=== PATIENT | female | born 1980 | race Hispanic/Latino ===

== ENCOUNTER 2018-07-10 18:24 | Observation (INO) | payer OTHER ==
[2018-07-10 19:11] LABS: Absolute Lymphocytes (CBC) 1.5 K/uL (0.7-4.9); Absolute Monocytes 0.5 K/uL (0.1-1.3); Absolute Neutrophil 3.7 K/uL (1.8-8.0); Basophils % 0.9 % (0-1.3); Eosinophils % 0.7 % (0-4.4); Hematocrit 43.2 % (36.0-45.0); Lymphocytes % 25.4 % (15.3-44.8); MCH 30.2 pg (27.0-35.0); MCV 88.4 fL (80-100); MPV 9.5 fL (7.6-11.3); Monocytes % 8.2 % (3.3-12.3); RBC Red Blood Cell Count 4.89 M/uL (3.86-4.86)
[2018-07-10 19:27] LABS: ALT/SGPT 31 U/L (12-78); AST/SGOT 23 U/L (15-37); Albumin 4.1 g/dL (3.4-5.0); Alkaline Phosphatase 84 U/L (45-117); BUN Blood Urea Nitrogen 9 mg/dL (7-18); Bicarbonate 28 mmol/L (21-32); Bilirubin Direct < 0.1 mg/dL (0-0.2); Bilirubin Total 0.2 mg/dL (0.2-1.0); Glucose Level 112 mg/dL (74-106); NT PRO-BNP 23 pg/mL (<125); Potassium 3.2 mmol/L (3.5-5.1); Protein, Total 7.7 g/dL (6.4-8.2); Sodium Level 143 mmol/L (136-145); Troponin (Emerg Dept Use Only) < 0.02 ng/mL (0.0-0.045)
[2018-07-10 20:13] LABS: Protime INR 0.97
--- NOTE | 2018-07-10 20:26 | RAD REPORT ---
EXAM DESCRIPTION: RAD - Chest Single View - 07/10/2018 7:29 pm CLINICAL HISTORY: Chest pain COMPARISON: None. TECHNIQUE: AP portable chest image was obtained 1913 hours . FINDINGS: Lungs are clear. Heart and vasculature are normal. No measurable pleural effusion and no p neumothorax. No gross bony abnormality seen. No acute aortic findings suspected. IMPRESSION: No acute cardiopulmonary process.
--- NOTE | 2018-07-10 20:51 | ER ---
Nurse's Notes [facility] Name: Carie Garcia Age: 37 yrs Sex: Female : 1980 Arrival Date: 07/10/2018 Time: 18:26 Bed 24 Private MD: Diagnosis: Chest pain, unspecified Presentation: 07/10 18:32 Presenting complaint: Patient states: Chest pain that radiates to left arm with nausea aj and lightheadedness. Transition of care: patient was not received from another setting of care. Onset of symptoms was July 10, 2018. Risk Assessment: Do you want to hurt yourself or someone else? Patient reports no desire to harm self or others. Initial Sepsis Screen: Does the patient meet any 2 criteria? No. Patient's initial sepsis screen is negative. Does the patient have a suspected source of infection? No. Patient's initial sepsis screen is negative. Care prior to arrival: None. 18:32 Method Of Arrival: Ambulatory aj 18:32 Acuity: CHRISTIANO 3 aj Triage Assessment: 18:34 General: Appears in no apparent distress. comfortable, Behavior is calm, cooperative, aj appropriate for age. Pain: Complains of pain in chest and left arm. Neuro: Level of Consciousness is awake, alert, obeys commands, Oriented to person, place, time, situation, Appropriate for age. Cardiovascular: Reports chest pain, lightheadedness, nausea, shortness of breath, Capillary refill < 3 seconds in bilateral fingers Patient's skin is warm and dry. Respiratory: Airway is patent Respiratory effort is even, unlabored, Respiratory pattern is regular, symmetrical. GI: Reports nausea. Derm: Skin is intact, is healthy with good turgor, Skin is pink, warm \T\ dry. normal. 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 - Social history:: Smoking status: Patient/guardian denies using tobacco. - Ebola Screening: : Patient negative for fever greater than or equal to 101.5 degrees Fahrenheit, and additional compatible Ebola Virus Disease symptoms Patient denies exposure to infectious person Patient denies travel to an Ebola-affected area in the 21 days before illness onset No symptoms or risks identified at this time. Screenin:50 Abuse screen: Denies threats or abuse. Nutritional screening: No deficits noted. tl3 Tuberculosis screening: No symptoms or risk factors identified. Fall Risk None identified. Assessment: 18:50 General: Appears uncomfortable, slender, well groomed, well developed, well nourished, tl3 Behavior is cooperative, appropriate for age, anxious. Pain: Complains of pain in chest Pain radiates to left arm Pain began suddenly. Neuro: Level of Consciousness is awake, alert, obeys commands, Oriented to person, place, time, situation, Appropriate for age. Cardiovascular: Patient's skin is warm and dry. Rhythm is regular. Respiratory: Airway is patent Respiratory effort is even, unlabored, Respiratory pattern is regular, symmetrical, Breath sounds are clear bilaterally. GI: No signs and/or symptoms were reported involving the gastrointestinal system. : 20:15 Reassessment: Patient appears in no apparent distress at this time. No changes from tl3 previously documented assessment. Patient and/or family updated on plan of care and expected duration. Pain level reassessed. Patient is alert, oriented x 3, equal unlabored respirations, skin warm/dry/pink. discussed POC and lab results with pt, no needs at this time. 20:58 Reassessment: Patient appears in no apparent distress at this time. No changes from tl3 previously documented assessment. Patient and/or family updated on plan of care and expected duration. Pain level reassessed. Patient is alert, oriented x 3, equal unlabored respirations, skin warm/dry/pink. pt updated on latest lab results, no needs at this time. Vital Signs: 18:34 BP 141 / 74; Pulse 83; Resp 17; Temp 98.0; Pulse Ox 100% on R/A; Weight 58.97 kg; aj Height 5 ft. 1 in. (154.94 cm); 18:50 BP 115 / 78; Pulse 81; Resp 18; Pulse Ox 100% on R/A; tl3 18:55 BP 129 / 80; Pulse 84; Resp 17; Pulse Ox 98% on R/A; mh5 20:15 BP 112 / 77; Pulse 76; Resp 16; Pulse Ox 99% on R/A; tl3 20:58 BP 110 / 70; Pulse 78; Resp 18; Pulse Ox 100% on R/A; tl3 18:34 Body Mass Index 24.56 (58.97 kg, 154.94 cm) ED Course: 18:26 Patient arrived in ED. mr 18:33 Triage completed. 18:34 Arm band placed on right wrist. Patient placed in an exam room. 18:37 Julian Patrick PA is PHCP. [facility] 18:37 Donnell Tomlinson MD is Attending Physician. [facility] 18:43 Kati Garcia, LIZ is Primary Nurse. tl3 18:50 No provider procedures requiring assistance completed. Initial lab(s) drawn, by nv, tl3 sent to lab. Inserted saline lock: 20 gauge in right antecubital area, using aseptic technique. Blood collected. Patient maintains SpO2 saturation greater than 95% on room air. 18:54 Patient has correct armband on for positive identification. Placed in gown. Bed in low mh5 position. Call light in reach. Side rails up X 1. Adult w/ patient. Warm blanket given. laboratory monitor on. Pulse ox on. NIBP on. 18:54 EKG done, by ED staff, reviewed by Julian MARTIN. [facility] 19:14 X-ray(s) taken. tl3 19:16 XRAY Chest (1 view) Sent. tl3 19:29 X-ray completed. Portable x-ray completed in exam room. Patient tolerated procedure kw well. 19:30 XRAY Chest (1 view) In Process Unspecified. EDMS 20:50 Mamie Moore MD is Hospitalizing Provider. [facility] 21:51 Patient admitted, IV remains in place. tl3 Administered Medications: 19:02 Drug: Aspirin Chewable Tablet 324 mg Route: PO; mg2 19:15 Follow up: Response: No adverse reaction tl3 Outcome: 20:50 Decision to Hospitalize by Provider. [facility] 21:50 Admitted to Med/surg accompanied by tech, via wheelchair, with chart, Report called to tl3 LIZ Shah 21:50 Condition: stable 21:50 Instructed on the need for admit, Demonstrated understanding of instructions. 22:32 Patient left the ED. tl3 Signatures: Dispatcher [employer] EDMS Carol Ann Coon, RN RN Julian Fierro PA PA jmm Rivera, Lizzie mr Gavi, Megan Arana 5 Kati Garcia, RN RN tl3 Dalton Corrales, LIZ RN mg2
--- NOTE | 2018-07-10 20:51 | EDPHYS ---
Physician Documentation [facility] Name: Carie Garcia Age: 37 yrs Sex: Female : 1980 Arrival Date: 07/10/2018 Time: 18:26 Bed 24 Private MD: ED Physician Donnell Tomlinson HPI: 07/10 18:45 This 37 yrs old Female presents to ER via Ambulatory with complaints of Chest jmm Pain, Arm Pain. 18:45 The patient or guardian reports chest pain that is located primarily in the substernal jmm area. The pain radiates to the left arm. Associated signs and symptoms: Pertinent positives: dizziness, Pertinent negatives: abdominal pain. The chest pain is described as a pressure. Duration: The patient or guardian reports a single episode, that is still ongoing. Modifying factors: The symptoms are alleviated by nothing. the symptoms are aggravated by nothing. This is a 37 year old female with a history of unspecified arrhythmias and heart murmur that presents to the ED with chest pain beginning this morning at 0900 described chest pressure which radiates to the left arm. Patient states symptoms are non exertional. Patient states family hx of CAD, denies tobacco use. . 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 - Social history:: Smoking status: Patient/guardian denies using tobacco. - Ebola Screening: : Patient negative for fever greater than or equal to 101.5 degrees Fahrenheit, and additional compatible Ebola Virus Disease symptoms Patient denies exposure to infectious person Patient denies travel to an Ebola-affected area in the 21 days before illness onset No symptoms or risks identified at this time. ROS: 18:45 Eyes: Negative for injury, pain, redness, and discharge, ENT: Negative for injury, jmm pain, and discharge. 18:45 Respiratory: Negative for shortness of breath, cough, wheezing, and pleuritic chest pain, Abdomen/GI: Negative for abdominal pain, nausea, vomiting, diarrhea, and constipation, Back: Negative for injury and pain. 18:45 Constitutional: Positive for malaise. 18:45 Cardiovascular: Positive for chest pain. 18:45 Neuro: Positive for dizziness. 18:45 All other systems are negative. Exam: 18:45 Head/Face: atraumatic. [facility] 18:45 Cardiovascular: Regular rate and rhythm. No edema appreciated Respiratory: Normal respirations, no respiratory distress appreciated 18:45 Constitutional: The patient appears in no acute distress, alert, awake. 18:45 Chest/axilla: Inspection: normal, Palpation: is normal. 18:45 Cardiovascular: Rate: normal, Rhythm: regular, Pulses: no pulse deficits are appreciated. 18:45 Skin: Appearance: Color: normal in color. 18:45 Neuro: Orientation: is normal, Mentation: is normal, Memory: is normal. 18:45 Psych: Behavior/mood is pleasant, cooperative. Vital Signs: 18:34 BP 141 / 74; Pulse 83; Resp 17; Temp 98.0; Pulse Ox 100% on R/A; Weight 58.97 kg; aj Height 5 ft. 1 in. (154.94 cm); 18:50 BP 115 / 78; Pulse 81; Resp 18; Pulse Ox 100% on R/A; tl3 18:55 BP 129 / 80; Pulse 84; Resp 17; Pulse Ox 98% on R/A; mh5 20:15 BP 112 / 77; Pulse 76; Resp 16; Pulse Ox 99% on R/A; tl3 20:58 BP 110 / 70; Pulse 78; Resp 18; Pulse Ox 100% on R/A; tl3 18:34 Body Mass Index 24.56 (58.97 kg, 154.94 cm) MDM: 18:45 Patient medically screened. [facility] 20:45 Data reviewed: vital signs, nurses notes. Counseling: I had a detailed discussion with sean the patient and/or guardian regarding: the historical points, exam findings, and any diagnostic results supporting the discharge/admit diagnosis, lab results, radiology results, the need for further work-up and treatment in the hospital. ED course: Dr. Moore contacted regarding need for admisssion. 07/10 18:45 Order name: Basic Metabolic Panel; Complete Time: 19:46 [facility] 07/10 18:45 Order name: CBC with Diff; Complete Time: 20:10 [facility] 07/10 18:45 Order name: LFT's; Complete Time: 19:46 [facility] 07/10 18:45 Order name: Magnesium; Complete Time: 19:46 [facility] 07/10 18:45 Order name: NT PRO-BNP; Complete Time: 19:46 [facility] 07/10 18:45 Order name: PT-INR; Complete Time: 20:25 [facility] 07/10 18:45 Order name: Troponin (emerg Dept Use Only); Complete Time: 19:46 [facility] 07/10 18:45 Order name: XRAY Chest (1 view); Complete Time: 20:28 [facility] 07/10 18:45 Order name: EKG; Complete Time: 18:46 [facility] 07/10 18:45 Order name: Cardiac monitoring; Complete Time: 19:03 [facility] 07/10 18:45 Order name: D-Dimer; Complete Time: 20:25 [facility] 07/10 20:12 Order name: Urine Dipstick--Ancillary (enter results); Complete Time: 21:32 ms 07/10 20:12 Order name: Urine --Ancillary (enter results); Complete Time: 21:32 ms 07/10 18:45 Order name: EKG - Nurse/Tech; Complete Time: 19:03 [facility] 07/10 18:45 Order name: IV Saline Lock; Complete Time: 19:03 [facility] 07/10 18:45 Order name: Labs collected and sent; Complete Time: 19: [facility] 07/10 18:45 Order name: O2 Per Protocol; Complete Time: 19:03 [facility] 07/10 18:45 Order name: O2 Sat Monitoring; Complete Time: 19:16 jm Administered Medications: 19:02 Drug: Aspirin Chewable Tablet 324 mg Route: PO; mg2 19:15 Follow up: Response: No adverse reaction tl3 Disposition: 07/11 18:24 Co-signature as Attending Physician, Donnell Tomlinson MD. Disposition: 07/10/18 20:50 Hospitalization ordered by Mamie Moore for Observation. Preliminary diagnosis is Chest pain, unspecified. - Bed requested for Telemetry/MedSurg (observation). - Status is Observation. tl3 - Condition is Stable. - Problem is new. - Symptoms are unchanged. UTI on Admission? No Signatures: Dispatcher [facility] Kylie Guthrie RN RN Carol Ann Grove RN RN Julian Fierro PA PA jmm Viridiana Oneill, RN LIZ bb Otto Lawrence PA PA cp Donnell Tomlinson MD MD gs Lowrey, Tammy, RN RN tl3 Dalton Corrales, RN RN mg2 Corrections: (The following items were deleted from the chart) 07/10 20:57 20:50 Hospitalization Ordered by Mamie Moore MD for Observation. Preliminary cp diagnosis is Chest pain, unspecified. Bed requested for Telemetry/MedSurg (observation). Status is Observation. Condition is Stable. Problem is new. Symptoms are unchanged. UTI on Admission? No. jmm 21:03 20:57 07/10/2018 20:50 Hospitalization Ordered by Mamie Moore MD for Observation. bb Preliminary diagnosis is Chest pain, unspecified. Bed requested for Telemetry/MedSurg (observation). Status is Observation. Condition is Stable. Problem is new. Symptoms are unchanged. UTI on Admission? No. cp 21:22 21:03 07/10/2018 20:50 Hospitalization Ordered by Mamie Moore MD for Observation. mw Preliminary diagnosis is Chest pain, unspecified. Bed requested for [facility] ER HOLD. Status is Observation. Condition is Stable. Problem is new. Symptoms are unchanged. UTI on Admission? No. bb 22:32 21:22 07/10/2018 20:50 Hospitalization Ordered by Mamie Moore MD for Observation. tl3 Preliminary diagnosis is Chest pain, unspecified. Bed requested for Telemetry/MedSurg (observation). Status is Observation. Condition is Stable. Problem is new. Symptoms are unchanged. UTI on Admission? No. mw
[2018-07-10 21:18] LABS: Urine Blood NEGATIVE (NEG); Urine Glucose NEGATIVE (NEG); Urine Protein NEGATIVE (NEG); Urine Specific Gravity 1.015 (1.005-1.030)
[2018-07-10] MEDS ORDERED: MORPHINE 4 MG/ML SYR IV PRN (22:05)
[2018-07-10] MEDS: ACETAMINOPHEN 500 MG TAB PO PRN (22:47)
[2018-07-10] MEDS: ALPRAZOLAM 0.25 MG TABLET PO PRN (22:48)
[2018-07-11 00:31] VITALS: BMI 24.7
[2018-07-11 06:06] LABS: Absolute Lymphocytes (CBC) 1.6 K/uL (0.7-4.9); Absolute Monocytes 0.6 K/uL (0.1-1.3); Absolute Neutrophil 2.7 K/uL (1.8-8.0); Basophils % 0.8 % (0-1.3); Eosinophils % 2.4 % (0-4.4); Hematocrit 41.3 % (36.0-45.0); Lymphocytes % 30.9 % (15.3-44.8); MCH 30.3 pg (27.0-35.0); MCV 89.1 fL (80-100); MPV 9.3 fL (7.6-11.3); Monocytes % 12.1 % (3.3-12.3); RBC Red Blood Cell Count 4.63 M/uL (3.86-4.86)
[2018-07-11] MEDS: ACETAMINOPHEN 500 MG TAB PO PRN (06:10)
[2018-07-11 06:35] LABS: Potassium 3.8 mmol/L (3.5-5.1)
[2018-07-11 06:40] LABS: HDL Cholesterol 51 mg/dL (40-60); LDL Cholesterol, Calculated 108 (<130); Troponin I < 0.02 ng/mL (0.0-0.045)
--- NOTE | 2018-07-11 06:44 | EKG ---
Test Date: 2018-07-10 Test Time: 18:50:56 Track Hoe Operator: THANH MEASUREMENT RESULTS: Intervals: Rate: 80 LA: 144 QRSD: 86 QT: 378 QTc: 435 [place]: P: 51 LA: 144 QRS: 44 T: 47 INTERPRETIVE STATEMENTS: Normal sinus rhythm normal ECG No previous ECG available for comparison Electronically Signed On 07-11-18 06:43:25 CDT by Felton Snyder
[2018-07-11 07:17] LABS: Urine Appearance CLEAR; Urine Bilirubin NEGATIVE (NEG); Urine Blood NEGATIVE (NEG); Urine Color YELLOW; Urine Glucose NEGATIVE (NEG); Urine Protein NEGATIVE (NEG); Urine Specific Gravity 1.015 (1.005-1.030); Urine Urobilinogen 0.2 mg/dL (0.2-1.0); Urine pH 6.5 (5.0-7.0)
[2018-07-11 07:23] LABS: Urine Microscopic Reflex NO UMIC
[2018-07-11] MEDS ORDERED: INFLUENZA VACCINE (for 3y+) 0.5 ML DOSE IMVAC ONE (08:00)
[2018-07-11] MEDS ORDERED: ASPIRIN EC 81 MG TAB PO SCH (09:00)
[2018-07-11] MEDS ORDERED: METOPROLOL TAR 50 MG TAB PO SCH (09:00)
[2018-07-11] MEDS ORDERED: NEBIVOLOL HCL 5 MG TAB PO SCH (09:00)
[2018-07-11] MEDS: ALPRAZOLAM 0.25 MG TABLET PO PRN (09:03)
--- NOTE | 2018-07-11 09:13 | P.HP ---
Certification for Inpatient Patient admitted to: Observation With expected LOS: <2 Midnights Patient will require the following post-hospital care: None Practitioner: I am a practitioner with admitting privileges, knowledge of patient current condition, hospital course, and medical plan of care. Services: Services provided to patient in accordance with Admission requirements found in Title 42 Section 412.3 of the Code of Federal Regulations Patient History Date of Service: 07/10/18 Reason for admission: Chest pain rule out acute coronary syndrome History of Present Illness: Patient is a 29-year-old female came to the hospital with chest discomfort. Pain was mainly in the sternal region. Patient's pain worsened so she came into the emergency room. Patient recently had a workup in April including EKG, stress test, and echocardiogram. She states that her workup was unremarkable. She had a Holter monitor placed which showed she had an arrhythmia. She was started on Bystolic. Since then she has been doing well up until yesterday when she had the chest discomfort. After the anxiolytics she felt much better. She was admitted to the hospital to be ruled out for an acute coronary syndrome. Allergies hydrocodone Allergy (Verified 07/10/18 22:56) Nausea/Vomiting Home Medications: Nebivolol HCl [Bystolic*] 1 tab PO DAILY 07/10/18 - Past Medical/Surgical History Has patient received pneumonia vaccine in the past: No Diabetic: No -: heart murmur -: arrythmia -: gallbladder removal -: partial hysterectomy -: tubal ligation - Family History Father Medical History: Hypertension, Cancer Notes: colon cancer Mother Medical History: Other (see notes) Notes: hypothyroidism - Social History Smoking Status: Never smoker Alcohol use: No CD- Drugs: No Caffeine use: Yes Place of Residence: Home Review of Systems 10-point ROS is otherwise unremarkable Physical Examination - Vital Signs Temperature: 97.3 F Blood Pressure: 99/58 Pulse: 65 Respirations: 18 Pulse Ox (%): 98 - Physical Exam General: Alert, In no apparent distress, Oriented x3 HEENT: Atraumatic, PERRLA, Mucous membr. moist/pink, EOMI, Sclerae nonicteric Neck: Supple, 2+ carotid pulse no bruit, No LAD, Without JVD or thyroid abnormality Respiratory: Clear to auscultation bilaterally, Normal air movement Cardiovascular: Regular rate/rhythm, Normal S1 S2, No murmurs Gastrointestinal: Normal bowel sounds, Soft and benign, Non-distended, No tenderness Musculoskeletal: No clubbing, No swelling, No tenderness Integumentary: No rashes Neurological: Normal gait, Normal speech, Normal strength at 5/5 x4 extr, Normal tone, Sensation intact, Cranial nerves 3-12 intact, Normal affect Lymphatics: No axilla or inguinal lymphadenopathy - Studies Laboratory Data (last 24 hrs) 07/10/18 18:55: PT 11.4, INR 0.97 07/10/18 18:55: WBC 5.8, Hgb 14.8, Hct 43.2, Plt Count 237 07/10/18 18:55: Sodium 143, Potassium 3.2 L, BUN 9, Creatinine 0.90, Glucose 112 H, Magnesium 2.0, Total Bilirubin 0.2, AST 23, ALT 31, Alkaline Phosphatase 84 Assessment & Plan - Problems (Diagnosis) (1) Chest pain, rule out acute myocardial infarction Current Visit: Yes Status: Acute (2) Arrhythmia Current Visit: Yes Status: Acute (3) Anxiety disorder Current Visit: Yes Status: Acute - Plan 1. Serial troponins and EKG 2. Cardiology consultation 3. Anxiety medications 4. Anti-platelet therapy, anti coagulation, beta-femi, statin, and O2 as needed 5. GI and DVT prophylaxis Discharge Plan: Home Plan to discharge in: 24 Hours - Advance Directives Does patient have a Living Will: No Does patient have a Durable POA for Healthcare: No - Code Status/Comfort Care Code Status Assessed: Yes Code Status: Full Code Critical Care: No Time Spent Managing PTS Care (In Minutes): 50
--- NOTE | 2018-07-11 09:17 | P.DS ---
Discharge Date: 07/11/18 Disposition: ROUTINE DISCHARGE Discharge Condition: GOOD Reason for Admission: Chest pain rule out acute coronary syndrome - Problems (1) Chest pain, rule out acute myocardial infarction Current Visit: Yes Status: Acute (2) Arrhythmia Current Visit: Yes Status: Acute (3) Anxiety disorder Current Visit: Yes Status: Acute Brief History of Present Illness: Patient is a 29-year-old female came to the hospital with chest discomfort. Pain was mainly in the sternal region. Patient's pain worsened so she came into the emergency room. Patient recently had a workup in April including EKG, stress test, and echocardiogram. She states that her workup was unremarkable. She had a Holter monitor placed which showed she had an arrhythmia. She was started on Bystolic. Since then she has been doing well up until yesterday when she had the chest discomfort. After the anxiolytics she felt much better. She was admitted to the hospital to be ruled out for an acute coronary syndrome. Hospital Course: Patient did much better after giving the anxiolytics. She is clinically doing much better and she is stable for discharge home with outpatient follow-up with her primary care provider. She apparently has had echocardiogram, stress test as an outpatient. She will need to follow with her food critic in 1-2 weeks. Vital Signs/Physical Exam: Temp Pulse Resp BP Pulse Ox 97.3 F 65 18 99/58 L 98 07/11/18 09:12 07/11/18 09:12 07/11/18 09:12 07/11/18 09:12 07/11/18 09:12 General: Alert, In no apparent distress, Oriented x3 Laboratory Data at Discharge: WBC 5.1 K/uL (4.3-10.9) 07/11/18 05:42 Hgb 14.0 g/dL (12.0-15.0) 07/11/18 05:42 Hct 41.3 % (36.0-45.0) 07/11/18 05:42 Plt Count 198 K/uL (152-406) 07/11/18 05:42 PT 11.4 SECONDS (9.5-12.5) 07/10/18 18:55 INR 0.97 07/10/18 18:55 Sodium 142 mmol/L (136-145) 07/11/18 05:42 Potassium 3.8 mmol/L (3.5-5.1) 07/11/18 05:42 BUN 8 mg/dL (7-18) 07/11/18 05:42 Creatinine 0.80 mg/dL (0.55-1.3) 07/11/18 05:42 Glucose 91 mg/dL (74-106) 07/11/18 05:42 Magnesium 2.0 mg/dL (1.8-2.4) 07/10/18 18:55 Total Bilirubin 0.2 mg/dL (0.2-1.0) 07/10/18 18:55 AST 23 U/L (15-37) 07/10/18 18:55 ALT 31 U/L (12-78) 07/10/18 18:55 Alkaline Phosphatase 84 U/L (45-117) 07/10/18 18:55 Troponin I < 0.02 ng/mL (0.0-0.045) 07/11/18 05:42 Triglycerides 150 mg/dL (<150) 07/11/18 05:42 Cholesterol 189 mg/dL (<200) 07/11/18 05:42 HDL Cholesterol 51 mg/dL (40-60) 07/11/18 05:42 Cholesterol/HDL Ratio 3.71 07/11/18 05:42 Home Medications: Nebivolol HCl [Bystolic*] 1 tab PO DAILY 07/10/18 ALPRAZolam [Xanax] 0.25 mg PO TID PRN #15 tab 07/11/18 New Medications: ALPRAZolam [Xanax] 0.25 mg PO TID PRN #15 tab PRN Reason: Anxiety Patient Discharge Instructions: OK TO DC IV AND DC HOME. FOLLOW-UP WITH PRIMARY CARE PROVIDER IN 1-2 WEEKS. FOLLOW-UP WITH CARDIOLOGY IN 1-2 WEEKS. RETURN TO THE ER IF symptoms worsen. CALL or TEXT DR. AGUILA AT [phone] IF ANY QUESTIONS REGARDING HOSPITAL STAY. PLEASE CALL THE FLOOR AT [phone] IF ANY MEDICATION OR NURSING QUESTIONS. Diet: low fat Activity: Fall precautions Time spent managing pt's care (in minutes): 20
[2018-07-11 11:26] VITALS: O2SAT 99
[2018-07-11 17:50] VITALS: BP 93/55; TEMP 98.8
== END 2018-07-11 12:33 | disposition home or self-care (01) ==
LOC: ER 18:24 → ERHOLD 21:07 → 2ND 22:11
PROVIDERS: ADMIT Hospitalist; ATTEND Hospitalist
DX: R07.9 Chest pain, unspecified (principal); I49.9 Cardiac arrhythmia, unspecified; F41.9 Anxiety disorder, unspecified; Z23 Encounter for immunization
CPT/HCPCS: 36415; 71045; 80048; 80061; 80076; 81003; 81025; 83735; 83880; 84484; 85025; 85379; 85610; 93005; 99285; G0008; G0378; Q2035

== ENCOUNTER 2020-04-11 22:15 | Emergency (ER) | payer OTHER ==
--- OUTSIDE RECORDS SUMMARY | 2020-04-11 22:18 | XMS REPORT | Continuity of Care Document ---
:1980 Author Organization [facility] t Address [address] [place] [address] Dr. Jim[address]. [address] [place] [address] Care Team Providers Name Role Phone Oneil Miller Attending Clinician Problems This patient has no known problems. Allergies, Adverse Reactions, Alerts This patient has no known allergies or adverse reactions. Medications This patient has no known medications. Procedures This patient has no known procedures. Encounters Start End Encounter Admission Attending Care Care Encounter Source Date/Time Date/Time Type Type Clinicians Facility Department ID 2019-05-22 2019-05-22 Emergency STEVE Acosta [id number] 17:32:02 23:05:00 [place] [id number] [place] [id number] [place] [id number] Results This patient has no known results.
[2020-04-11] MEDS ORDERED: NA CHLORIDE 0.9% 1,000 ML ONE (23:02)
[2020-04-11] MEDS ORDERED: MORPHINE 4 MG/ML SYR ONE (23:02)
[2020-04-11] MEDS ORDERED: ONDANSETRON 4 MG/2 ML VIAL ONE (23:02)
[2020-04-11 23:08] LABS: Basophils % 0.6 % (0-1.3); Hematocrit 41.7 % (36.0-45.0); Lymphocytes % 17.7 % (15.3-44.8); MPV 9.8 fL (7.6-11.3); RBC Red Blood Cell Count 4.55 M/uL (3.86-4.86)
[2020-04-11 23:17] LABS: ALT/SGPT 21 U/L (12-78); AST/SGOT 14 U/L (15-37); Alkaline Phosphatase 64 U/L (45-117); BUN Blood Urea Nitrogen 17 mg/dL (7-18); Bicarbonate 25 mmol/L (21-32); Bilirubin Direct < 0.1 mg/dL (0-0.2); Bilirubin Total 0.3 mg/dL (0.2-1.0); Glucose Level 92 mg/dL (74-106); Lipase 95 U/L (73-393); Potassium 3.4 mmol/L (3.5-5.1); Protein, Total 7.3 g/dL (6.4-8.2); Sodium Level 142 mmol/L (136-145)
--- NOTE | 2020-04-12 00:59 | ER ---
Nurse's Notes [facility] Name: Carie Martins Age: 39 yrs Sex: Female : 1980 Arrival Date: 04/11/2020 Time: 22:18 Bed 18 [facility] MD: Diagnosis: Upper abdominal pain, unspecified Presentation: 04/11 22:39 Chief complaint: Patient states: "I am having left upper side pain for 1 and a half jd3 hours before coming to the ER.". Coronavirus screen: Proceed with normal triage. Ebola Screen: Patient negative for fever greater than or equal to 101.5 degrees Fahrenheit, and additional compatible Ebola Virus Disease symptoms. Initial Sepsis Screen: Does the patient meet any 2 criteria? No. Patient's initial sepsis screen is negative. Does the patient have a suspected source of infection? No. Patient's initial sepsis screen is negative. Risk Assessment: Do you want to hurt yourself or someone else? Patient reports no desire to harm self or others. Onset of symptoms was April 11, 2020. 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 - Social history:: Smoking status: Patient denies any tobacco usage or history of. Screenin:01 Abuse screen: Denies threats or abuse. Nutritional screening: No deficits noted. jd3 Tuberculosis screening: No symptoms or risk factors identified. Fall Risk Ambulatory Aid- None/Bed Rest/Nurse Assist (0 pts). Gait- Normal/Bed Rest/Wheelchair (0 pts) Mental Status- Oriented to own ability (0 pts). Total Harvey Fall Scale indicates No Risk (0-24 pts). Assessment: 22:59 General: Appears in no apparent distress. uncomfortable, Behavior is calm, cooperative, jd3 appropriate for age. Pain: Complains of pain in left lower quadrant Quality of pain is described as aching. Neuro: Level of Consciousness is awake, alert, obeys commands, Oriented to person, place, time, situation. Cardiovascular: Denies chest pain, Capillary refill < 3 seconds Patient's skin is warm and dry. Respiratory: Airway is patent Respiratory effort is even, unlabored, Respiratory pattern is regular, symmetrical, Denies cough, shortness of breath. GI: Abdomen is flat, non-distended, Abd is soft X 4 quads Abdomen is tender to palpation in left lower quadrant Reports lower abdominal pain. : No signs and/or symptoms were reported regarding the genitourinary system. EENT: No signs and/or symptoms were reported regarding the EENT system. Derm: Skin is intact, Skin is dry, Skin is normal, Skin temperature is warm. Musculoskeletal: Circulation, motion, and sensation intact. Range of motion: intact in all extremities. 23:25 Reassessment: Patient appears in no apparent distress at this time. Patient and/or jd3 family updated on plan of care and expected duration. Pain level reassessed. Patient is alert, oriented x 3, equal unlabored respirations, skin warm/dry/pink. Patient states feeling better. 04/12 00:41 Reassessment: Patient appears in no apparent distress at this time. Patient and/or jd3 family updated on plan of care and expected duration. Pain level reassessed. Patient is alert, oriented x 3, equal unlabored respirations, skin warm/dry/pink. Patient denies pain at this time. Patient states feeling better. 01:07 Reassessment: Patient appears in no apparent distress at this time. Patient and/or jd3 family updated on plan of care and expected duration. Pain level reassessed. Patient is alert, oriented x 3, equal unlabored respirations, skin warm/dry/pink. pt reported understanding of discharge instructions, even and steady gait upon discharge. Patient denies pain at this time. Patient states feeling better. Vital Signs: 04/11 22:41 BP 165 / 104; Pulse 89; Resp 20 S; Temp 98.5(O); Pulse Ox 100% on R/A; Weight 58.97 kg jd3 (R); Height 5 ft. 1 in. (154.94 cm) (R); Pain 10/10; 04/12 00:41 BP 127 / 74; Pulse 76; Resp 16 S; Pulse Ox 100% on R/A; Pain 0/10; jd3 07/01 22:41 Body Mass Index 24.56 (58.97 kg, 154.94 cm) jd3 ED Course: 04/11 22:18 Patient arrived in ED. bp1 22:36 Malissa Shannon [facility]-C [facility] kb 22:36 Otto Campuzano MD is Attending Physician. kb 22:38 Anthony Galaviz, LIZ is Primary Nurse. jd3 22:40 Triage completed. jd3 22:42 Arm band placed on. jd3 22:58 Inserted saline lock: 20 gauge in right antecubital area, using aseptic technique. jd3 Blood collected. 23:01 Patient has correct armband on for positive identification. Bed in low position. Call jd3 light in reach. Side rails up X 1. Adult w/ patient. Pulse ox on. NIBP on. 04/12 00:41 CT Abd/Pelvis - IV Contrast Only In Process Unspecified. EDMS 01:07 No provider procedures requiring assistance completed. IV discontinued, intact, jd3 bleeding controlled, No redness/swelling at site. Pressure dressing applied. Administered Medications: 04/11 22:57 Drug: NS 0.9% 1000 ml Route: IV; Rate: 1000 ml; Site: right antecubital; jd3 23:50 Follow up: Response: No adverse reaction; IV Status: Completed infusion; IV Intake: jd3 1000ml 22:57 Drug: Zofran (Ondansetron) 4 mg Route: IVP; Site: right antecubital; jd3 23:24 Follow up: Response: No adverse reaction jd3 22:58 Drug: morphine 4 mg Route: IVP; Site: right antecubital; jd3 23:24 Follow up: Response: No adverse reaction; RASS: Alert and Calm (0) jd3 Intake: 23:50 IV: 1000ml; Total: 1000ml. jd3 Outcome: 04/12 00:59 Discharge ordered by . kb 01:08 Discharged to home ambulatory, with family. jd3 01:08 Condition: stable 01:08 Discharge instructions given to patient, Instructed on discharge instructions, follow up and referral plans. medication usage, Demonstrated understanding of instructions, follow-up care, medications, Prescriptions given X 2. 01:08 Patient left the ED. jd3 Signatures: Dispatcher [employer] EDMS Malissa Shannon FNP-C FNP-CkAnthony Stewart, RN RN jd3 Elvira Castillo Corrections: (The following items were deleted from the chart) : 01:07 Reassessment: Patient appears in no apparent distress at this time. Patient jd3 and/or family updated on plan of care and expected duration. Pain level reassessed. Patient is alert, oriented x 3, equal unlabored respirations, skin warm/dry/pink. Patient denies pain at this time. Patient states feeling better. jd3
--- NOTE | 2020-04-12 00:59 | EDPHYS ---
Physician Documentation [facility] Name: Carie Martins Age: 39 yrs Sex: Female : 1980 Arrival Date: 04/11/2020 Time: 22:18 Bed 18 Private MD: SUSANA Physician Otto Campuzano HPI: 04/11 23:51 This 39 yrs old Female presents to ER via Ambulatory with complaints of kb Abdominal Pain. 23:51 The patient presents with abdominal pain in the left upper quadrant. Onset: The kb symptoms/episode began/occurred 1.5 hour(s) ago. The symptoms do not radiate. Associated signs and symptoms: Pertinent positives: nausea, Pertinent negatives: constipation, diarrhea, fever, vomiting. The symptoms are described as constant. Modifying factors: The symptoms are alleviated by nothing, the symptoms are aggravated by nothing. Severity of pain: At its worst the pain was moderate severe in the emergency department the pain is unchanged. The patient has not experienced similar symptoms in the past. The patient has not recently seen a physician. Pt reports LUQ pain that started 1.5 hours prior to arrival. Reports nausea. Denies vomiting, diarrhea, constipation and fever. 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 - Social history:: Smoking status: Patient denies any tobacco usage or history of. ROS: 23:50 Constitutional: Negative for fever, chills, and weight loss, Cardiovascular: Negative kb for chest pain, palpitations, and edema, Respiratory: Negative for shortness of breath, cough, wheezing, and pleuritic chest pain, Back: Negative for injury and pain, MS/Extremity: Negative for injury and deformity, Skin: Negative for injury, rash, and discoloration, Neuro: Negative for headache, weakness, numbness, tingling, and seizure. 23:50 Abdomen/GI: Positive for abdominal pain, nausea, Negative for vomiting, diarrhea, constipation. Exam: 23:50 Constitutional: This is a well developed, well nourished patient who is awake, alert, kb and in no acute distress. Head/Face: Normocephalic, atraumatic. Chest/axilla: Normal chest wall appearance and motion. Nontender with no deformity. No lesions are appreciated. Cardiovascular: Regular rate and rhythm with a normal S1 and S2. No gallops, murmurs, or rubs. Normal PMI, no JVD. No pulse deficits. Respiratory: Lungs have equal breath sounds bilaterally, clear to auscultation and percussion. No rales, rhonchi or wheezes noted. No increased work of breathing, no retractions or nasal flaring. Back: No spinal tenderness. No costovertebral tenderness. Full range of motion. Skin: Warm, dry with normal turgor. Normal color with no rashes, no lesions, and no evidence of cellulitis. MS/ Extremity: Pulses equal, no cyanosis. Neurovascular intact. Full, normal range of motion. Neuro: Awake and alert, GCS 15, oriented to person, place, time, and situation. Cranial nerves II-XII grossly intact. Motor strength 5/5 in all extremities. Sensory grossly intact. Cerebellar exam normal. Normal gait. 23:50 Abdomen/GI: Inspection: abdomen appears normal, Bowel sounds: normal, in all quadrants, Palpation: soft, in all quadrants, moderate abdominal tenderness, in the left upper quadrant. Vital Signs: 22:41 BP 165 / 104; Pulse 89; Resp 20 S; Temp 98.5(O); Pulse Ox 100% on R/A; Weight 58.97 kg jd3 (R); Height 5 ft. 1 in. (154.94 cm) (R); Pain 10/10; 04/12 00:41 BP 127 / 74; Pulse 76; Resp 16 S; Pulse Ox 100% on R/A; Pain 0/10; jd3 04/11 22:41 Body Mass Index 24.56 (58.97 kg, 154.94 cm) jd3 MDM: 04/11 22:36 Patient medically screened. kb 23:51 Data reviewed: vital signs, nurses notes. Data interpreted: Pulse oximetry: on room air kb is 100 %. Interpretation: normal. 04/12 00:58 Counseling: I had a detailed discussion with the patient and/or guardian regarding: the kb historical points, exam findings, and any diagnostic results supporting the discharge/admit diagnosis, lab results, radiology results, the need for outpatient follow up, a family practitioner, to return to the emergency department if symptoms worsen or persist or if there are any questions or concerns that arise at home. 04/11 22:37 Order name: Basic Metabolic Panel; Complete Time: 23:20 kb 04/11 22:37 Order name: CBC with Diff; Complete Time: 23:20 kb 04/11 22:37 Order name: Hepatic Function; Complete Time: 23:20 kb 04/11 22:37 Order name: Lipase; Complete Time: 23:20 kb 04/11 22:38 Order name: CT Abd/Pelvis - IV Contrast Only kb 04/11 22:37 Order name: IV Saline Lock; Complete Time: 22:58 kb 04/11 22:37 Order name: Labs collected and sent; Complete Time: 22:58 kb Administered Medications: 04/11 22:57 Drug: NS 0.9% 1000 ml Route: IV; Rate: 1000 ml; Site: right antecubital; jd3 23:50 Follow up: Response: No adverse reaction; IV Status: Completed infusion; IV Intake: jd3 1000ml 22:57 Drug: Zofran (Ondansetron) 4 mg Route: IVP; Site: right antecubital; jd3 23:24 Follow up: Response: No adverse reaction jd3 22:58 Drug: morphine 4 mg Route: IVP; Site: right antecubital; jd3 23:24 Follow up: Response: No adverse reaction; RASS: Alert and Calm (0) jd3 Disposition: 04/12 05:35 Co-signature as Attending Physician, Otto Campuzano MD I agree with the assessment and daniel plan of care. Disposition: 04/12/20 00:59 Discharged to Home. Impression: Upper abdominal pain, unspecified. - Condition is Stable. - Discharge Instructions: Abdominal Pain, Adult, [id number]. - Prescriptions for Bentyl 20 mg Oral Tablet - take 1 tablet by ORAL route every 6 hours As needed; 20 tablet. Zofran 4 mg Oral Tablet - take 1 tablet by ORAL route every 6 hours As needed; 20 tablet. - Medication Reconciliation Form, Thank You Letter, Antibiotic Education, Prescription Opioid Use form. - Follow up: Emergency Department; When: As needed; Reason: Worsening of condition. Follow up: Private Physician; When: 2 - 3 days; Reason: Recheck today's complaints, Continuance of care, Re-evaluation by your physician. Signatures: Dispatcher [employer] Malissa Vail, BAKER APPRENTICE-C BAKER APPRENTICE-Otto Botello MD MD cha Davies, Jonathon, RN RN jd3 Corrections: (The following items were deleted from the chart) 01:08 00:59 04/12/2020 00:59 Discharged to Home. Impression: Upper abdominal pain, jd3 unspecified. Condition is Stable. Forms are Medication Reconciliation Form, Thank You Letter, Antibiotic Education, Prescription Opioid Use. Follow up: Emergency Department; When: As needed; Reason: Worsening of condition. Follow up: Private Physician; When: 2 - 3 days; Reason: Recheck today's complaints, Continuance of care, Re-evaluation by your physician. kb
[2020-04-12 01:36] VITALS: TEMP 98.5; O2SAT 100
[2020-04-12 01:38] VITALS: BP 127/74
--- NOTE | 2020-04-12 14:04 | RAD REPORT ---
EXAM DESCRIPTION: CT - Abdomen Pelvis W Contrast - 04/12/2020 8:29 am CLINICAL HISTORY: 39 years Female ABD PAIN COMPARISON: None TECHNIQUE: Images were obtained in axial, sagittal, and coronal planes. Intravenous contrast was adm inistered. Arterial and venous phase imaging was performed. This exam was performed according to our departmental dose-optimization program which includes use of Automated Exposure Control, adjustment of the mA and/or kV according to patient size and/or use o f iterative reconstruction technique. FINDINGS: No abnormality involving the liver, spleen, pancreas, or adrenal glands bilaterally. Prior cholecystectomy. No obstructing renal calcifications bilaterally. No hydronephrosis bilaterally. Distended bladder. No abnormality abdominal aorta or portal vein. No adenopathy or abnormal fluid collections seen. Appendix within normal limits. No bowel obstruction, perforation, or inflammation. Small left periumb ilical hernia which contains only mesenteric fat. No abnormality lower lungs bilaterally. No acute osseous abnormality. IMPRESSION: No acute intra-abdominal abnormality. Distended bladder. Electronically signed by: Kat Yu MD 04/12/2020 12:51 AM CDT Due to temporary technical issues with the PACS/Fluency reporting system, reports are being signed by the in house radiologist as a courtesy to ensure prompt reporting. The interpreting radiologist is f ully responsible for the content of the report.
== END 2020-04-12 01:08 | disposition home or self-care (01) ==
LOC: ER 22:15
DX: R10.12 Left upper quadrant pain (principal); Z88.5 Allergy status to narcotic agent
CPT/HCPCS: 96361; 85025; 80048; 36415; 80076; 83690; 74177; 96375; 96374; 99284; Q9967; J7030; J2405

== ENCOUNTER 2020-11-04 19:22 | Emergency (ER) | payer BC, OTHER ==
--- OUTSIDE RECORDS SUMMARY | 2020-11-04 19:25 | XMS REPORT | Summary of Care ---
:1980 Author Organization [facility] Address [address] [place] [id number] Care Team Providers Name Role Phone Pcp, Patient Does Not Have A Primary Care Provider +1-000-00 0-0000 Pcp, Does Not Have A Unavailable Reason for Visit Reason Comments LAB Exposure Fatigue Encounter Details Date Type Department Care Team Description 09/14/2020 Laboratory Only [facility] Family Nathan Stewart, LOUISA [id number] [place] [address] Exposure to Medicine - [facility], Adc Fam Pob I SARS-associated [address] [place] [address] coronaviru s ([address] Dx) [place] [address] Allergies Active Allergy Reactions Severity Noted Date Comments Hydrocodone Other - See comments 05/22/2019 "sever stomach pain" documented as of this encounter (statuses as of 09/14/2020) Medications Medication Sig Dispensed Refills Start Date End Date Status mupirocin 2 % Apply to area(s) 22 g 0 05/22/2019 Active ointmentIndications: 3 (three) times Rash daily. 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 documented as of this encounter Last Filed Vital Signs Not on filedocumented in this encounter Nursing Notes Soraya Jaimes LVN - 09/14/2020 2:20 PM CSTCarie Martins is a 39 year old female here for COVID Screening with a Nasopharyngeal Swab All droplet and contact precautions taken with appropriate PPE worn while interacting with patient. ? Goggles ? N95 Mask ? Gloves ? Gown RR 16 Pulse Ox 97% Patient educated on plan of care for visit, swabbing technique, risks and benefits of test and length of time to receive results. Verbal consent obtained to perform test. CDC Fact Sheet for Patients nCoV Diagnostic Panel dated 12/25/2019 and Factsheet What to Do if Sick with COVID 19 12/05/19 provided. Patient swabbed per appropriate nasopharyngeal technique, and patient tolerated well. Patient was discharged from the testing clinic in stable condition. Soraya Jaimse LVN 09/14/2020 2:40 PM BUCKER documented in this encounter Plan of Treatment Name Type Priority Associated Diagnoses Order S chedule COVID-19 (MOLECULAR LAB Routine Exposure to Expected : 09/14/2020, TESTING SARS-associated Expires: 021 NUCLEIC ACID coronavirus AMPLIFICATION) Health Maintenance Due Date Last Done Comments Depression Screening 1991 DTaP,Tdap,and Td Vaccines (1 - 1998 02/11/2018 Tdap) PAP SMEAR 05/13/2009 05/13/2006 Breast Cancer Screening 2019 (MAMMOGRAM) INFLUENZA VACCINE (#1) 2020 PNEUMOCOCCAL 0-64 YEARS COMBINED Aged Out No longer eligible based on SERIES patient's age to complete this topic documented as of this encounter Results Not on filedocumented in this encounter Visit Diagnoses Diagnosis Exposure to SARS-associated coronavirus - Primary documented in this encounter Additional Health Concerns Infection Onset Date Last Indicated Resolved Time COVID-19 Rule Out 09/14/2020 09/14/2020 documented as of this encounter Insurance Payer Benefit Plan Subscriber ID Effective Dates Phone Address Type / Group BC[place] [id number] 2020-Uma [phone] [address] PPO/POS [place] [id number] [place] [address] documented as of this encounter
--- OUTSIDE RECORDS SUMMARY | 2020-11-04 19:25 | XMS REPORT | Summary of Care ---
:1980 Author Organization [facility] Address [address] [place] [address] Care Team Providers Name Role Phone Pcp, Patient Does Not Have A Primary Care Provider +1-000-00 0-0000 Pcp, Does Not Have A Unavailable Reason for Visit Reason Comments Results Encounter Details Date Type Department Care Team Description 09/19/2020 Telephone [facility] Urgent Provider, [facility] Urgent Results Care Care [address] [place] [phone] Allergies Active Allergy Reactions Severity Noted Date Comments Hydrocodone Other - See comments 05/22/2019 "sever stomach pain" documented as of this encounter (statuses as of 09/19/2020) Medications Medication Sig Dispensed Refills Start Date End Date Status mupirocin 2 % Apply to area(s) 22 g 0 05/22/2019 Active ointmentIndications: 3 (three) times Rash daily. documented as of this encounter (statuses as of 09/19/2020) Active Problems No known active problemsdocumented as of this encounter (statuses as of 09/19/2020) Immunizations Name Administration Dates Next Due Td 02/11/2018 documented as of this encounter Social History Tobacco Use Types Packs/Day Years Used Date Never Assessed Sex Assigned at Date Recorded Not on file COVID-19 Exposure Response Date Recorded In the last month, have you been in contact with Yes 09/14/2020 2:40 PM DIRECTOR IT someone who was confirmed or suspected to have Coronavirus / COVID-19? documented as of this encounter Last Filed Vital Signs Not on filedocumented in this encounter Miscellaneous Notes Telephone Encounter - Jumana Smith RN - 09/19/2020 8:41 PM [id number] Using legal billing clerk,#[phone] release of information clerk called patient and then the release of information clerk states shedid not hear the patient on the line anymore. Governor Assembler Hydraulic call back and left a msg that nurse will try again in 5 minutes. 2042 using legal billing clerk #[id number], called patient without answer, left msg for patient to call back Per epic review, patient has viewed negative covid result in josht SHARRI Haile, RN [facility] Access Center elephone Encounter - Hope Broderick - 09/19/2020 1:50 PM CSTPt calling for covid results. documented in this encounter Plan of Treatment Health Maintenance Due Date Last Done Comments Depression Screening 1991 DTaP,Tdap,and Td Vaccines (1 - 1998 02/11/2018 Tdap) PAP SMEAR 05/13/2009 05/13/2006 Breast Cancer Screening 2019 (MAMMOGRAM) INFLUENZA VACCINE (#1) 2020 PNEUMOCOCCAL 0-64 YEARS COMBINED Aged Out No longer eligible based on SERIES patient's age to complete this topic documented as of this encounter Results Not on filedocumented in this encounter Insurance Payer Benefit Plan Subscriber ID Effective Dates Phone Address Type / Group [place] [id number] 2020-Uma [phone] [address] PPO/POS [place] [id number] [place] [address] AETNA AETNA TRS [id number] 2014-[place] PPO CARE t documented as of this encounter
--- OUTSIDE RECORDS SUMMARY | 2020-11-04 19:25 | XMS REPORT | Summary of Care ---
:1980 Author Organization [facility] - [facility] Address [address] [place] [address] Care Team Providers Name Role Phone Pcp, Patient Does Not Have A Primary Care Provider +1-000-00 0-0000 Pcp, Does Not Have A Unavailable Reason for Visit Reason Comments Results COVID Encounter Details Date Type Department Care Team Description 09/21/2020 Telephone ACCESS CENTER Pcp, Patient Does Not Results (COVID) [address] [place] [address] [address] [facility] [phone] [place], [place] [address] Allergies Active Allergy Reactions Severity Noted Date Comments Hydrocodone Other - See comments 05/22/2019 "sever stomach pain" documented as of this encounter (statuses as of 09/21/2020) Medications Medication Sig Dispensed Refills Start Date End Date Status mupirocin 2 % Apply to area(s) 22 g 0 05/22/2019 Active ointmentIndications: 3 (three) times Rash daily. 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 documented as of this encounter Last Filed Vital Signs Not on filedocumented in this encounter Miscellaneous Notes Telephone Encounter - Melly De La Torre RN - 09/21/2020 12:45 PM CST Access Center Reviewed results on mychart. I spoke with the patient. All questions answered. Patient Release Status: This result is viewable by the patient in MyChart. Last viewed in MyChart: 09/17/2020 2:20 PM By: Carie Martins Result Information Flag: Normal Status: Final result (Collected: 09/14/2020 14:21) Provider Status: Reviewed COVID-19 (MOLECULAR TESTING NUCLEIC ACID AMPLIFICATION) Order: [id number] Status: Final result Visible to patient: Yes (MyChart) Dx: Exposure to SARS-associated coronavirus Specimen Information: NASOPHARYNGEAL SWAB Component Ref Range & Units 7d ago SARS-CoV-2 NAAT Not Detected Not Detected Melly Edwards elephone Encounter - Loc Gomez - 09/21/2020 12:40 PM CSTPatient is calling stating that she needs a letter for work stating her results. She is stating thatshe can no longer log into [employer] to get the letters as one said she was Negative and another letter said Postive so she wants to speak to someone. L ENGINE MECHANIC documented in this encounter Plan of Treatment [...] Effective Dates Phone Address Type / Group [facility] [id number] 2020-Uma [phone] [address] PPO/POS [place] [id number] [place] [address] AETNA AETNA TRS [id number] 2014-Uma [facility] t documented as of this encounter
--- OUTSIDE RECORDS SUMMARY | 2020-11-04 19:25 | XMS REPORT | Clinical Summary ---
:1980 Author Organization [facility] Address [address] [place] [address] Care Team Providers Name Role Phone Cristina Beltran Primary Care Provider Allergies Active Allergy Reactions Severity Noted Date Comments Hydrocodone 05/26/2019 Medications Medication Sig Dispensed Refills Start Date End Date Status hydroCHLOROthiazide Take 25 mg by 0 Active (HYDRODIURIL) 25 MG tablet mouth daily. Active Problems Problem Noted Date Rash and nonspecific skin eruption 05/26/2019 Surgical History Surgery Date Site/Laterality Comments TUBAL LIGATION UMBILICAL HERNIA REPAIR CHOLECYSTECTOMY HYSTERECTOMY Medical History Medical History Date Comments Hypertension Heart murmur Social History Tobacco Use Types Packs/Day Years Used Date Never Smoker Smokeless Tobacco: Never Used Alcohol Use Drinks/Week oz/Week Comments Yes Social Sex Assigned at Date Recorded Not on file Last Filed Vital Signs Not on file Plan of Treatment Health Maintenance Due Date Last Done Comments COVID-19 VACCINE (1 of 2) 1995 CERVICAL CANCER SCREENING 2000 INFLUENZA VACCINE 05/12/2020 Results Not on fileafter 11/04/2019 Advance Directives For more information, please contact: [phone] Type Date Recorded Patient Local Driver Explanati on Advance Directives, Living Will and 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
--- OUTSIDE RECORDS SUMMARY | 2020-11-04 19:25 | XMS REPORT | Continuity of Care Document ---
:1980 Author Organization [facility] t Address [address] [place] [address] Care Team Providers Name Role Phone Devin MARTIN Primary Care Physician Pcp, Does Not Have A Attending Clinician Wil RN, T Attending Clinician Unavailable Provider, Urgent Care Attending Clinician Unavailable Lab, Fam Pob I Attending Clinician Unavailable Dave ROLLE S Attending Clinician Nurse, Urgent Care Attending Clinician Unavailable Problems Condition Condition Condition Status Onset Resolution Last Treating Co mments Source Name Details Category Date Date Treatment Clinician Date Rash and Rash and Disease Active [place] nonspecifi nonspecifi 05-26 Me thodi c skin c skin 00:00: st eruption eruption 00 Allergies, Adverse Reactions, Alerts Allergy Allergy Status Severity Reaction(s) Onset Inactive Treating Comm ents Source Name Type Date Date Clinician Hydrocod Propensi Active [place] one ty to 05-26 Methodi adverse 00:00: st reaction 00 s to drug Social History Social Habit Start Date Stop Date Quantity Comments Source Sex Assigned At [facility] ethodist Tobacco use and 2019-05-26 2019-05-26 Never used [facility] ethodist exposure 00:00:00 00:00:00 Alcohol intake 2019-05-26 2019-05-26 Current drinker [place] 00:00:00 00:00:00 of alcohol (finding) Alcohol Comment 2019-05-26 2019-05-26 Social Shyam Tuttle ethodist 00:00:00 00:00:00 Smoking Status Start Date Stop Date Source Never smoker Shyam acosta Medications Ordered Filled Start Stop Current Ordering Indication Dosage Frequency Signature Comments Components Source Medication Medication Date Date Medication? Clinician (SIG) Name Name hydroCHLORO 2019-0 Yes 25mg QD Take 25 mg Shyam thiazide 8-17 by mouth Methodi (HYDRODIURI 12:12: daily. st L) 25 MG 33 tablet Procedures This patient has no known procedures. Plan of Care Planned Activity Planned Date Details Comments Source Future Scheduled 2020-05-12 INFLUENZA VACCINE [place] Test 00:00:00 [code = INFLUENZA VACCINE] Future Scheduled 2000 Screening for Shyam Cheek thodist Test 00:00:00 malignant neoplasm of cervix (procedure) [code = 758712423] Future Scheduled 1995 COVID-19 VACCINE (1 [place] Test 00:00:00 of 2) [code = COVID-19 VACCINE (1 of 2)] Encounters Start End Encounter Admission Attending Care Care Encounter Source Date/Time Date/Time Type Type Clinicians Facility Department ID 2020-09-21 2020-09-21 Telephone PcpEDWARD [id number] 00:00:00 00:00:00 Patient [facility] [id number] Does Not HOSPITAL [id number] Have A [id number] 2020-09-21 2020-09-21 Letter EDWARD De La Torre [id number] 00:00:00 00:00:00 (Out) Melly ANTUNEZ [id number] HOSPITAL [id number] 2020-09-19 2020-09-19 Telephone Provider, STEVE [id number] 00:00:00 00:00:00 [facility] [id number] Care Surgical [id number] Specialti [phone] [address] [place] 2020-09-14 2020-09-14 Laboratory Lab, [facility] [id number] 14:19:54 14:39:54 Only Fam Pob I Health [id number] [place] [id number] Professio [phone] [address]al [address] 2019-05-22 2019-05-22 Emergency [place], [facility] [id number] 17:32:02 23:05:00 [place] [id number] [place] [id number] [place] [id number] 2019-05-22 2019-05-22 Nurse NurseBashir [facility] [id number] 16:47:12 16:55:31 Visit Urgent Care Health [id number] Surgical [id number] Special [phone] [address] [place] Results This patient has no known results.
--- OUTSIDE RECORDS SUMMARY | 2020-11-04 19:26 | XMS REPORT | Summary of Care ---
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 documented as of this encounter Last Filed Vital Signs Not on filedocumented in this encounter Plan of Treatment Health [...] Group [employer] [place] [id number] 2020-Uma [phone] [address] PPO/POS [place] t [id number] [place] [address] AETNA AETNA TRS [id number] 2014-Uma PPO CARE t documented as of this encounter
[2020-11-04 23:43] LABS: Absolute Lymphocytes (CBC) 2.4 K/uL (0.7-4.9); Basophils % 1.2 % (0-1.3); Hematocrit 40.9 % (36.0-45.0); Lymphocytes % 36.2 % (15.3-44.8); RBC Red Blood Cell Count 4.51 M/uL (3.86-4.86)
[2020-11-04 23:59] LABS: ALT/SGPT 16 U/L (12-78); AST/SGOT 14 U/L (15-37); Albumin 3.9 g/dL (3.4-5.0); Alkaline Phosphatase 64 U/L (45-117); BUN Blood Urea Nitrogen 14 mg/dL (7-18); Bicarbonate 27 mmol/L (21-32); Bilirubin Direct < 0.1 mg/dL (0-0.2); Bilirubin Total 0.3 mg/dL (0.2-1.0); Glucose Level 121 mg/dL (74-106); Lipase 113 U/L (73-393); Potassium 3.4 mmol/L (3.5-5.1); Protein, Total 7.2 g/dL (6.4-8.2); Sodium Level 140 mmol/L (136-145); Troponin (Emerg Dept Use Only) < 0.02 ng/mL (0.0-0.045)
[2020-11-05] MEDS ORDERED: MORPHINE 2 MG/ML SYR ONE (00:02)
[2020-11-05] MEDS ORDERED: ONDANSETRON 4 MG/2 ML VIAL ONE (00:02)
[2020-11-05] MEDS ORDERED: NA CHLORIDE 0.9% 1,000 ML ONE (00:02)
[2020-11-05 00:30] LABS: Urine Blood NEGATIVE (NEG); Urine Glucose NEGATIVE (NEG); Urine Protein NEGATIVE (NEG); Urine Specific Gravity >1.030 (1.005-1.030); Urine pH 5.5 (5.0-7.0)
--- NOTE | 2020-11-05 02:28 | EDPHYS ---
Physician Documentation [facility] Name: Carie Martins Age: 40 yrs Sex: Female : 1980 Arrival Date: 11/04/2020 Time: 19:33 Bed 13 Private MD: Cristina Beltran ED Physician Jsu Zeng HPI: 11/04 23:22 This 40 yrs old Female presents to ER via Ambulatory with complaints of mh7 covid+, Flank Pain. 23:22 The patient complains of pain in the left flank. The pain radiates to the left lower mh7 abdomen. 23:23 Onset: The symptoms/episode began/occurred today. Modifying factors: The symptoms are mh7 alleviated by OTC meds, the symptoms are aggravated by movement, palpation/percussion. Associated signs and symptoms: Pertinent positives: nausea, Pertinent negatives: diarrhea, dizziness, dysuria, fever, urinary frequency, headache, hematuria, pain radiating to the lower extremities, vomiting. Severity of pain: At its worst the pain was moderate today, in the emergency department the pain has improved moderately. BUTCHER: 20:02 LMP N/A - Hysterectomy ca1 Historical: - Allergies: 20:02 Hydrocodone-Acetaminophen; ca1 - Home Meds: 20:02 Metoprolol Tartrate Oral [Active]; ca1 - PMHx: 20:02 Heart Murmur; ca1 - PSHx: 20:02 Hysterectomy; Cholecystectomy; Hernia repair; ca1 - Immunization history:: Flu vaccine is not up to date. - Social history:: Smoking status: Patient denies any tobacco usage or history of. ROS: 23:23 Constitutional: Negative for fever, chills, and weight loss. mh7 23:25 Eyes: Negative for injury, pain, redness, and discharge, ENT: Negative for injury, mh7 pain, and discharge, Neck: Negative for injury, pain, and swelling, Cardiovascular: Negative for chest pain, palpitations, and edema, Respiratory: Negative for shortness of breath, cough, wheezing, and pleuritic chest pain, : Negative for injury, bleeding, discharge, and swelling, MS/Extremity: Negative for injury and deformity, Skin: Negative for injury, rash, and discoloration, Neuro: Negative for headache, weakness, numbness, tingling, and seizure, Psych: Negative for depression, anxiety, suicide ideation, homicidal ideation, and hallucinations, Allergy/Immunology: Negative for hives, rash, and allergies, Endocrine: Negative for neck swelling, polydipsia, polyuria, polyphagia, and marked weight changes, Hematologic/Lymphatic: Negative for swollen nodes, abnormal bleeding, and unusual bruising. Exam: 23:25 Constitutional: This is a well developed, well nourished patient who is awake, alert, mh7 and in no acute distress. Head/Face: Normocephalic, atraumatic. Eyes: Pupils equal round and reactive to light, extra-ocular motions intact. Lids and lashes normal. Conjunctiva and sclera are non-icteric and not injected. Cornea within normal limits. Periorbital areas with no swelling, redness, or edema. Neck: Trachea midline, no thyromegaly or masses palpated, and no cervical lymphadenopathy. Supple, full range of motion without nuchal rigidity, or vertebral point tenderness. No Meningismus. Chest/axilla: Normal chest wall appearance and motion. Nontender with no deformity. No lesions are appreciated. Cardiovascular: Regular rate and rhythm with a normal S1 and S2. No gallops, murmurs, or rubs. Normal PMI, no JVD. No pulse deficits. Respiratory: Lungs have equal breath sounds bilaterally, clear to auscultation and percussion. No rales, rhonchi or wheezes noted. No increased work of breathing, no retractions or nasal flaring. 23:25 Skin: Warm, dry with normal turgor. Normal color with no rashes, no lesions, and no evidence of cellulitis. MS/ Extremity: Pulses equal, no cyanosis. Neurovascular intact. Full, normal range of motion. Neuro: Awake and alert, GCS 15, oriented to person, place, time, and situation. Cranial nerves II-XII grossly intact. Motor strength 5/5 in all extremities. Sensory grossly intact. Cerebellar exam normal. Normal gait. Psych: Awake, alert, with orientation to person, place and time. Behavior, mood, and affect are within normal limits. 23:25 Abdomen/GI: Inspection: abdomen appears normal, Bowel sounds: normal, in all quadrants, Palpation: moderate abdominal tenderness, in the left upper quadrant and left lower quadrant, Rectal exam: the exam is deferred, because of patient request, Indicators: McBurney's point is not tender, Swanson's sign is negative, Rovsing's sign is negative, Obturator sign is negative, Psoas sign is negative, Liver: no appreciated palpable abnormalities, Hernia: not appreciated. 23:25 Back: ROM is normal, normal spinal alignment noted, CVA tenderness, that is moderate, is noted on the left, vertebral tenderness, is not appreciated, muscle spasm, is not present. Vital Signs: 19:58 BP 126 / 87; Pulse 63; Resp 16 S; Temp 97.8(TE); Pulse Ox 100% on R/A; Weight 59.87 kg ca1 (R); Height 5 ft. 0 in. (152.40 cm) (R); Pain 7/10; 23:53 BP 132 / 85; Pulse 67; Resp 16; Pulse Ox 99% on R/A; zb 11/05 01:00 BP 122 / 92; Pulse 72; Resp 18; Pulse Ox 100% on R/A; fu 02:00 BP 110 / 71; Pulse 66; Resp 18; Pulse Ox 100% on R/A; fu 11/04 19:58 Body Mass Index 25.78 (59.87 kg, 152.40 cm) ca1 MDM: 02:25 Differential diagnosis: nephrolithiasis, pyelonephritis, UTI, diverticulitis, mh7 pancreatitis. Data reviewed: vital signs, nurses notes, EMS record, lab test result(s), cardiac enzymes, CBC, electrolytes, urinalysis, EKG, radiologic studies, CT scan, plain films. Data interpreted: Pulse oximetry: on room air is 99 %. Interpretation: normal. Counseling: I had a detailed discussion with the patient and/or guardian regarding: the historical points, exam findings, and any diagnostic results supporting the discharge/admit diagnosis, lab results, radiology results, the need for outpatient follow up, to return to the emergency department if symptoms worsen or persist or if there are any questions or concerns that arise at home. Response to treatment: the patient's symptoms have resolved after treatment, the patient's blood pressure is in an acceptable range, mental status has returned to baseline, the patient no longer shows bradycardia, the patient is not short of breath, the patient is not tachycardic, the patient's pain is gone, the patient's temperature has normalized. 02:27 Patient medically screened. mh7 11/04 23:02 Order name: Basic Metabolic Panel; Complete Time: 00:13 [facility] 11/04 23:02 Order name: CBC with Diff; Complete Time: 00:13 [facility] 11/04 23:02 Order name: Hepatic Function; Complete Time: 00:13 [facility] 11/04 23:02 Order name: Lipase; Complete Time: 00:13 [facility] 11/04 23:02 Order name: Troponin (emerg Dept Use Only); Complete Time: 00:13 [facility] 11/04 23:03 Order name: D-Dimer; Complete Time: 00:13 [facility] 11/04 23:25 Order name: Chest Single View XRAY [facility] 11/05 00:18 Order name: CT Abd/Pelvis - IV Contrast Only [facility] 11/05 00:19 Order name: Urine --Ancillary (enter results) [facility] 11/05 00:19 Order name: Urine Dipstick--Ancillary (enter results) [facility] 11/05 00:30 Order name: Urine --Ancillary; Complete Time: 01:14 [facility] 11/05 00:30 Order name: Urine Dipstick-Ancillary; Complete Time: 01:14 [facility] 11/04 20:10 Order name: EKG; Complete Time: 20:11 [facility] 11/04 20:10 Order name: EKG - Nurse/Tech; Complete Time: 20:10 [facility] 11/04 23:02 Order name: IV Saline Lock; Complete Time: 23:21 [facility] 11/04 23:02 Order name: Labs collected and sent; Complete Time: 23:21 [facility] 11/04 23:02 Order name: Urine Dipstick-Ancillary (obtain specimen); Complete Time: 00: [facility] Administered Medications: 11/04 23:52 Drug: NS 0.9% 1000 ml Route: IV; Rate: 1000 ml; Site: right antecubital; zb 23:52 Drug: morphine 2 mg Route: IVP; Site: right antecubital; zb 23:52 Drug: Zofran (Ondansetron) 4 mg Route: IVP; Site: right antecubital; zb Disposition: 11/05/20 02:27 Discharged to Home. Impression: Coronavirus infection, unspecified, Flank Pain. - Condition is Stable. - Discharge Instructions: Flank Pain, [id number], COVID-19. - Medication Reconciliation Form, Thank You Letter, Antibiotic Education, Prescription Opioid Use form. - Follow up: Private Physician; When: 1 - 2 days; Reason: Worsening of condition, Recheck today's complaints, Continuance of care, Re-evaluation by your physician. - Problem is new. - Symptoms have improved. Signatures: Dispatcher [employer] EDNJ Neo Ceja, STRUCTURAL WELDER-C STRUCTURAL WELDER-Cla1 Xochitl Aquino RN RN ea Acob, Cheryl, RN RN ca1 Holmes, Maurice, MD MD 7 Maria Elena Stark RN RN zb Corrections: (The following items were deleted from the chart) 11/05 02:50 02:27 11/05/2020 02:27 Discharged to Home. Impression: Coronavirus infection, ea unspecified; Flank Pain. Condition is Stable. Forms are Medication Reconciliation Form, Thank You Letter, Antibiotic Education, Prescription Opioid Use. Follow up: Private Physician; When: 1 - 2 days; Reason: Worsening of condition, Recheck today's complaints, Continuance of care, Re-evaluation by your physician. Problem is new. Symptoms have improved. 7
--- NOTE | 2020-11-05 02:28 | ER ---
Nurse's Notes [facility] Name: Carie Martins Age: 40 yrs Sex: Female : 1980 Arrival Date: 11/04/2020 Time: 19:33 Bed 13 Private MD: Cristina Beltran Diagnosis: Coronavirus infection, unspecified;Flank Pain Presentation: 11/04 19:58 Chief complaint: Patient states: Covid+ 10/29/2020. No prior symptoms. Was tested due to ca1 exposure. Today, started having pain under the ribcage on the L side radiating to the back, nausea. Coronavirus screen: Client reports previous positive COVID test result. Date of collection: October 29, 2020 Staff notified of need for isolation. Ebola Screen: Patient negative for fever greater than or equal to 101.5 degrees Fahrenheit, and additional compatible Ebola Virus Disease symptoms Patient denies exposure to infectious person. Patient denies travel to an Ebola-affected area in the 21 days before illness onset. No symptoms or risks identified at this time. Initial Sepsis Screen: Does the patient meet any 2 criteria? No. Patient's initial sepsis screen is negative. Does the patient have a suspected source of infection? No. Patient's initial sepsis screen is negative. Risk Assessment: Do you want to hurt yourself or someone else? Patient reports no desire to harm self or others. Onset of symptoms was November 04, 2020. 19:58 Method Of Arrival: Ambulatory ca1 19:58 Acuity: CHRISTIANO 4 ca1 Triage Assessment: 23:42 General: Behavior is calm, cooperative, appropriate for age. 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 - Social history:: Smoking status: Patient denies any tobacco usage or history of. Screenin:42 Abuse screen: Denies threats or abuse. Denies injuries from another. Nutritional zb screening: No deficits noted. Tuberculosis screening: No symptoms or risk factors identified. Fall Risk None identified. Assessment: 23:30 General: Appears in no apparent distress. uncomfortable. Pain: Complains of pain in zb left flank Pain does not radiate. Pain currently is 7 out of 10 on a pain scale. at worst was 10 out of 10 on a pain scale. Pain began yesterday. Neuro: Level of Consciousness is awake, alert, obeys commands, Oriented to person, place, time, situation. Cardiovascular: Heart tones S1 S2 present Capillary refill < 3 seconds in bilateral fingers Patient's skin is warm and dry. Respiratory: Airway is patent Respiratory effort is even, unlabored, Respiratory pattern is regular, symmetrical, Breath sounds are clear bilaterally. GI: No signs and/or symptoms were reported involving the gastrointestinal system. Abdomen is round non-distended, Abdomen is tender to palpation in left upper quadrant. : No signs and/or symptoms were reported regarding the genitourinary system. EENT: No signs and/or symptoms were reported regarding the EENT system. Derm: Skin is intact, is healthy with good turgor, Skin is dry, Skin is normal, Skin temperature is warm. 23:53 Reassessment: IV fluids infusing. Patient given urine cup. zb 11/05 00:00 Reassessment: Patient and/or family updated on plan of care and expected duration. Pain ea level reassessed. Patient is alert, oriented x 3, equal unlabored respirations, skin warm/dry/pink. 01:30 Reassessment: Patient and/or family updated on plan of care and expected duration. Pain ea level reassessed. Patient is alert, oriented x 3, equal unlabored respirations, skin warm/dry/pink. 02:49 Reassessment: Patient and/or family updated on plan of care and expected duration. Pain ea level reassessed. Patient is alert, oriented x 3, equal unlabored respirations, skin warm/dry/pink. Discharge instruction given to patient verbalized the understanding of instruction. Pt left ED ambulatory tolerating well. Vital Signs: 11/04 19:58 BP 126 / 87; Pulse 63; Resp 16 S; Temp 97.8(TE); Pulse Ox 100% on R/A; Weight 59.87 kg ca1 (R); Height 5 ft. 0 in. (152.40 cm) (R); Pain 7/10; 23:53 BP 132 / 85; Pulse 67; Resp 16; Pulse Ox 99% on R/A; zb 11/05 01:00 BP 122 / 92; Pulse 72; Resp 18; Pulse Ox 100% on R/A; fu 02:00 BP 110 / 71; Pulse 66; Resp 18; Pulse Ox 100% on R/A; fu 11/04 19:58 Body Mass Index 25.78 (59.87 kg, 152.40 cm) ca1 ED Course: 11/04 19:33 Patient arrived in ED. am2 19:34 Cristina Beltran is Private Physician. am2 20:01 Triage completed. ca1 20:02 Arm band placed on right wrist. ca1 22:29 Jus Zeng MD is Attending Physician. [facility] 23:21 Inserted saline lock: 20 gauge in right antecubital area, using aseptic technique. 4 Blood collected. 23:34 Maria Elena Stark RN is Primary Nurse. zb 23:42 Patient has correct armband on for positive identification. Pulse ox on. NIBP on. zb 23:42 Patient maintains SpO2 saturation greater than 95% on room air. zb 11/05 02:46 Chest Single View XRAY In Process Unspecified. EDMS 02:46 CT Abd/Pelvis - IV Contrast Only In Process Unspecified. EDMS Administered Medications: 11/04 23:52 Drug: NS 0.9% 1000 ml Route: IV; Rate: 1000 ml; Site: right antecubital; zb 23:52 Drug: morphine 2 mg Route: IVP; Site: right antecubital; zb 23:52 Drug: Zofran (Ondansetron) 4 mg Route: IVP; Site: right antecubital; zb Intake: 17:20 IV: 1000ml; Total: 1000ml. zb 17:20 IV: 1000ml; Total: 2000ml. zb Outcome: 11/05 02:27 Discharge ordered by . 7 02:50 Patient left the ED. ea Signatures: Dispatcher [employer] EDMS Carol Ann Mendiola 2 Xochitl Aquino RN Mike Ford ea RN July Mancuso RN LIZ [facility] Hank Melton 4 Jus Zeng MD MD [id number] Brown, Zipporah, RN RN zb Corrections: (The following items were deleted from the chart) 00:01 11/04 23:53 Reassessment: IV fluids infusing. chepe mo
[2020-11-05 03:19] VITALS: TEMP 97.8
[2020-11-05 03:21] VITALS: O2SAT 100
[2020-11-05 03:22] VITALS: BP 110/71
--- NOTE | 2020-11-05 07:31 | EKG ---
Test Date: 2020-11-04 Test Time: 20:08:59 Sandwich Board Carrier: FALGUNI MEASUREMENT RESULTS: Intervals: Rate: 64 AK: 136 QRSD: 76 QT: 412 QTc: 425 [place]: P: 53 AK: 136 QRS: 68 T: 59 INTERPRETIVE STATEMENTS: Normal sinus rhythm Normal ECG No previous ECG available for comparison Electronically Signed On 11-05-20 07:29:58 REED REPAIRER by Kevin Oneal
--- NOTE | 2020-11-05 08:32 | RAD REPORT ---
EXAM DESCRIPTION: RAD - Chest Single View - 11/05/2020 12:29 am CLINICAL HISTORY: CHEST PAIN Chest pain. COMPARISON: Chest Single View dated 07/10/2018 FINDINGS: Portable technique limits examination quality. Mild interstitial opacities bilaterally suggest subtle viral infection. The heart is normal in size. No displaced fractures.
--- NOTE | 2020-11-05 16:09 | RAD REPORT ---
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 TECHNIQUE: This exam was performed according to our departmental dose-optimization program, which in cludes automated exposure control, adjustment of the mA and/or kV according to patient size and/or us e of iterative reconstruction technique. FINDINGS: Lower lungs are clear. Abdomen: The liver is normal in appearance. There is no biliary dilatation. Cholecystectomy was perfo rmed. The pancreas and spleen are normal in appearance. The adrenal glands and kidneys are unremarkab le. Abdominal aorta is normal in course and caliber without aneurysm. There is no free air. There is no r etroperitoneal adenopathy. Pelvis: There is moderate amount of stool in the colon. Urinary bladder is unremarkable. There is no free fluid. Uterus is not seen. Appendix is normal. Skeleton: There are no acute osseous findings. No suspicious bony lesions. IMPRESSION: No acute process. Electronically signed by: Elkin Hamlin MD 11/05/2020 1:20 AM ELECTRIC METER INSTALLER HELPER Due to temporary technical issues with the PACS/Fluency reporting system, reports are being signed by the in house radiologists without review as a courtesy to insure prompt reporting. The interpreting radiologist is fully responsible for the content of the report.
== END 2020-11-05 02:50 | disposition home or self-care (01) ==
LOC: ER 19:22
DX: U07.1 COVID-19 (principal); R10.9 Unspecified abdominal pain
CPT/HCPCS: 93005; 85025; 80048; 36415; 81025; 85379; 80076; 81003; 84484; 83690; 74177; 71045; Q9967; 96374; 96375; 99284

== ENCOUNTER 2022-01-10 12:38 | Emergency (ER) | payer BC ==
--- OUTSIDE RECORDS SUMMARY | 2022-01-10 12:40 | XMS REPORT | Continuity of Care Document ---
:1980 Author Organization [facility] t Address [address] [place] [address] Care Team Providers Name Role Phone PCP, DOES NOT HAVE A Primary Care Physician Unavailable Dipti FILL[place] Attending Clinician DIPTI Attending Clinician Unavailable Pcp, Does Not Have A Attending Clinician Wil RN, T Attending Clinician Unavailable Provider, Urgent Care Attending Clinician Unavailable Lab, Fam Pob I Attending Clinician Unavailable Anefletcher F[place] Attending Clinician Dave PAC, S Attending Clinician Nurse, Urgent Care Attending Clinician Unavailable Unknown Attending Clinician Unavailable Payers Payer Name Policy Type Policy Number Effective Date Expiration Date S ource Problems Condition Condition Condition Status Onset Resolution Last Treating Co mments Source Name Details Category Date Date Treatment Clinician Date No known No known Disease Unive rs active active ity of problems problems [facility] Allergies, Adverse Reactions, Alerts Allergy Allergy Status Severity Reaction(s) Onset Inactive Treating Comm ents Source Name Type Date Date Clinician Hydrocod Propensi Active Other - See 2019-0 "sever U nivers one ty to comments 811 stomach ity of adverse 00:00: pain" [place] reaction [address] [place] [address] [place] HYDROCOD DRUG Active Other-Cmnt 2019-0 Univ ers ONE INGREDI 8-11 ity of 00:00: [place] 00 Medical Branch Social History Social Habit Start Date Stop Date Quantity Comments Source Exposure to Yes [facility] SARS-CoV-2 (event) Medica l Branch Sex Assigned At [facility] Medical Branch Tobacco use and 2021-10-16 2021-10-16 Never used [facility] exposure 00:00:00 00:00:00 Medical Branch Smoking Status Start Date Stop Date Source Never smoker [facility] Unknown if ever smoked [facility] Medications Ordered Filled Start Stop Current Ordering Indication Dosage Frequency Signature Comments Components Source Medication Medication Date Date Medication? Clinician (SIG) Name Name NaCl 0.9% 2018- 2019- No 1000mL at 999 Uni vers (NS) bolus 8-12 08-12 mL/hr, ity of infusion 01:15: 04:03 1,000 mL, [place] as 1,000 mL 00 :00 IV Medical Infusion, Branch ONCE, 1 dose, 05/22/19 at 2015, STAT mupirocin 2 2018-0 Yes [id number] Apply to Univers % ointment 8-11 area(s) 3 ity of 00:00: (three) [place] 00 times Medical daily. Branch mupirocin 2 2018-0 Yes [id number] Apply to Univers % ointment 8-11 area(s) 3 ity of 00:00: (three) [place] 00 times Medical daily. Branch mupirocin 2 2019-0 Yes [id number] Apply to Univers % ointment 8-11 area(s) 3 ity of 00:00: (three) [place] 00 times Medical daily. Branch mupirocin 2 2019- Yes [id number] Apply to Univers % ointment 8-11 area(s) 3 ity of 00:00: (three) [place] 00 times Medical daily. Branch mupirocin 2 2019-0 Yes [id number] Apply to Univers % ointment 8-11 area(s) 3 ity of 00:00: (three) [place] 00 times Medical daily. Branch mupirocin 2 2019-0 Yes [id number] Apply to Univers % ointment 8-11 area(s) 3 ity of 00:00: (three) [place] 00 times Medical daily. Branch No known No [facility] Ordered Filled Immunization Date Status Comments Sour e Immunization Name Name Td 2018-02-11 Completed University of 00:00:00 [place] [facility] Td 2018-02-11 Completed University of 00:00:00 [place] [facility] Td 2018-02-11 Completed University of 00:00:00 [place] [facility] Td 2018-02-11 Completed University of 00:00:00 [place] [facility] Td 2018-02-11 Completed University of 00:00:00 [place] [facility] Td 2018-02-11 Completed University of 00:00:00 [facility] Vital Signs Vital Name Observation Time Observation Value Comments Source Systolic blood 2021-10-16 19:32:00 135 mm[Hg] Univer sity of pressure [facility] Branch Diastolic blood 2021-10-16 19:32:00 84 mm[Hg] Unive rsity of pressure [facility] Heart rate 2021-10-16 19:32:00 106 /min Universi ty of [facility] Body temperature 2021-10-16 19:32:00 37.22 Magda Univ ersity of [facility] Respiratory rate 2021-10-16 19:32:00 18 /min Univ ersity of [facility] Body height 2021-10-16 19:32:00 154.9 cm Universi ty of [place] [facility] [place] Body weight 2021-10-16 19:32:00 61.372 kg Universi ty of [facility] Branch BMI 2021-10-16 19:32:00 25.56 kg/m2 Universi ty [facility] Oxygen saturation in 2021-10-16 19:32:00 99 /min University of Arterial blood by [facility] [place] Pulse oximetry Branch Systolic blood 2019-05-23 03:00:00 143 mm[Hg] Univer sity of pressure [place] [facility] Diastolic blood 2019-05-23 03:00:00 92 mm[Hg] Unive rsity of pressure [place] [facility] Heart rate 2019-05-23 03:00:00 81 /min Universi ty of [place] [facility] Respiratory rate 2019-05-23 03:00:00 18 /min Univ ersity of [facility] Oxygen saturation in 2019-05-23 03:00:00 100 /min University of Arterial blood by [facility] [place] Pulse oximetry Branch Body temperature 2019-05-22 22:28:00 36.78 Magda Univ ersity of [facility] Body height 2019-05-22 22:28:00 154.9 cm Universi ty of [place] [facility] Body weight 2019-05-22 22:28:00 60.328 kg Universi ty of [place] [facility] BMI 2019-05-22 22:28:00 25.13 kg/m2 Universi ty of [place] [facility] Systolic blood 2019-05-23 03:00:00 143 mm[Hg] Univer sity of pressure [place] [facility] Diastolic blood 2019-05-23 03:00:00 92 mm[Hg] Unive rsity of pressure [place] [facility] Heart rate 2019-05-23 03:00:00 81 /min Universi ty of [place] [facility] Respiratory rate 2019-05-23 03:00:00 18 /min Univ ersity of [place] [facility] Oxygen saturation in 2019-05-23 03:00:00 100 /min University of Arterial blood by [facility] [place] Pulse oximetry Branch Body temperature 2019-05-22 22:28:00 36.78 Magda [facility] ersity of [place] [facility] Body height 2019-05-22 22:28:00 154.9 cm Universi ty of [place] [facility] Body weight 2019-05-22 22:28:00 60.328 kg Universi ty of [place] [facility] BMI 2019-05-22 22:28:00 25.13 kg/m2 Universi ty of [place] [facility] Body temperature 2019-05-22 22:39:00 37.11 Magda [facility] ersity of [place] [facility] Respiratory rate 2019-05-22 22:39:00 20 /min Univ ersity of [place] [facility] Body height 2019-05-22 22:39:00 154.9 cm Universi ty of [place] [facility] Body weight 2019-05-22 22:39:00 60.102 kg Universi ty of [place] [facility] BMI 2019-05-22 22:39:00 25.04 kg/m2 Universi ty of [place] [facility] Oxygen saturation in 2019-05-22 22:39:00 100 /min University of Arterial blood by [facility] [place] Pulse oximetry Branch Systolic blood 2019-05-22 22:39:00 135 mm[Hg] Univer sity of pressure [place] [facility] Diastolic blood 2019-05-22 22:39:00 79 mm[Hg] Unive rsity of pressure [place] [facility] Heart rate 2019-05-22 22:39:00 120 /min Universi ty of [place] [facility] Body temperature 2019-05-22 22:39:00 37.11 Magda [facility] Respiratory rate 2019-05-22 22:39:00 20 /min [facility] Body height 2019-05-22 22:39:00 154.9 cm [facility] Body weight 2019-05-22 22:39:00 60.102 kg [facility] BMI 2019-05-22 22:39:00 25.04 kg/m2 [facility] Oxygen saturation in 2019-05-22 22:39:00 100 /min [facility] Arterial blood by [facility] [place] Pulse oximetry Branch Systolic blood 2019-05-22 22:39:00 135 mm[Hg] [facility] [place] Diastolic blood 2019-05-22 22:39:00 79 mm[Hg] [facility] Heart rate 2019-05-22 22:39:00 120 /min [facility] Procedures Procedure Date / Time Performing Clinician Source Performed POCT MOLECULAR STREP 2021-10-16 19:29:00 Tammi Sunshine [facility] POCT GLUCOSE 2019-05-23 02:54:00 Libertad Acosta [facility] (AUTOMATED) [facility] BASIC METABOLIC PANEL 2019-05-22 23:42:00 Libertad Acosta [facility] (NA, K, CL, CO2, Medical Branch GLUCOSE, BUN, CREATININE, CA) CBC WITH DIFFERENTIAL 2019-05-22 23:42:00 Libetrad Acosta [facility] XR CHEST 1 VW 2019-05-22 23:17:08 Libertad Acosta [facility] EKG-12 LEAD 2019-05-22 22:57:51 Libertad Acosta [facility] NOTICE OF PRIVACY 2019-05-22 22:01:44 Doctor Unassigned, No [facility] PRACTICES Name Medical Branch Encounters Start End Encounter Admission Attending Care Care Encounter Source Date/Time Date/Time Type Type Clinicians Facility Department ID 2021-10-16 2021-10-16 Outpatient R [facility] [id number] [facility] 18:20:00 18:20:00 [id number] [facility] 2021-10-16 2021-10-16 Urgent STEVE Sunshine [id number] Univers 18:20:00 18:20:00 Care Tammi HEALTH [id number] it y of [place] 4.2.7.2.686 [place] as MARIA DOLORES?BLEA [phone] Vt lucina FERREIRA [address] [place] [address] MEDICAL OFFICE BUILDING 2021-10-16 2021-10-16 Outpatient R DIPTI [facility] [id number] Univers 18:20:00 14:17:06 TAMMI ity of [facility] 2020-09-21 2020-09-21 Telephone PcpEDWARD [id number] 00:00:00 00:00:00 Patient [place] [id number] Does Not HOSPITAL 4.2.7.2.686 Have A [id number] [facility] 2020-09-21 2020-09-21 Letter EDWARD De La Torre [id number] 00:00:00 00:00:00 (Out) Melly T [place] [id number] HOSPITAL 4.2.7.2.686 [id number] [facility] 2020-09-21 2020-09-21 Telephone PcpEDWARD [id number] Univers 00:00:00 00:00:00 Patient [place] [id number] it y of Does [facility] [place] A [id number] [address] 2020-09-21 2020-09-21 Letter EDWARD De La Torre [id number] Univers 00:00:00 00:00:00 (Out) Melly T [place] [id number] it y of [facility] 4.2.7.2.686 [place] as [id number] [address] 2020-09-19 2020-09-19 Telephone Provider, [facility] [id number] 00:00:00 00:00:00 Ang [facility] [id number] Care Surgical 4.2.7.2.[address] Specialti [phone] [address] 2020-09-19 2020-09-19 Telephone Provider, [facility] [id number] Univers 00:00:00 00:00:00 Ang Urgent Health 350.1.13.10 ity of [facility] Surgical 4.2.7.2.686 [place] as Specialti [phone] Vt dical [address] [facility] 2020-09-14 2020-09-14 Laboratory Lab, [facility] 1.2.840.114 [id number] 14:19:54 14:39:54 Only Fam Pob I Health 350.1.13.10 [place] 4.2.7.2.686 Professio [id number] nal [facility] Office Building [facility] 2020-09-14 2020-09-14 Laboratory Lab, [facility] Fam Pob I [facility] [id number]. [id number] Univers 14:19:54 14:39:54 Only Anefletcher, [facility] 350.1.13.10 ity of [place] 4.2.7.2.686 [place] as Professio [phone] [facility] [address] [place] Office [facility] 2020-09-14 2020-09-14 Outpatient R [facility] [id number] Univers 14:20:00 14:20:00 ity [facility] 2020-09-14 2020-09-14 Outpatient R [facility] [id number] Univers 14:20:00 14:20:00 ity [facility] 2020-09-13 2020-09-13 Outpatient R [facility] [id number] Univers 16:40:00 [facility]:40[facility] 2019-05-22 2019-05-22 Emergency [facility] [id number] Univers 17:32:02 23:05:00 Libertad S [place] 350.1.13.10 i ty of [place]7.2.686 [place] [id number] [address] 2019-05-22 2019-05-22 [facility] [id number] 17:32:02 23:05:00 Libertad S [place] 350.1.13.10 [place] 4.2.7.2.686 [place] [id number] [facility] 2019-05-22 2019-05-22 Nurse Nurse, [facility] 1.2.840.114 [id number] 16:47:12 16:55:31 Visit Urgent Care [place] [id number] Surgical 4.2.7.2.686 Specialti [id number] es [address] [place] 2019-05-22 2019-05-22 Nurse Nurse, [facility] Urgent [facility] 1.2 .840.114 [id number] [facility] 16:47:12 16:55:31 Visit Unknown, Attending [place] [id number] ity of Surgical 4.2.7.2.686 [place] Specialti [phone] Me dical es [address] [facility] Results Test Description Test Time Test Comments Results Result Comments Source POCT MOLECULAR STREP 2021-10-16 19:36:24 Test Item Value Reference Range Interpretation Comme nts POCT Molecular Strep (test code = 47668-0) Negative Negative Lab Interpretation (test code = 85863-7) [facility] 02:58:00 Test Item Value Reference Range Interpretation Comments POCT GLU (test code = 2921590807) 98 mg/dL 70-110 Lab Interpretation (test code = Normal 87281-1) [facility] METABOLIC PANEL (NA, K, CL, CO2, GLUCOSE, BUN, CREATININE, CA)2019-05-23 00:06:00 Test Item Value Reference Range Interpretation Comments NA (test code = 142 mmol/L 135-145 7605051651) K (test code = 3.5 mmol/L 3.5-5 0367978457) CL (test code = 105 mmol/L 98-108 2445775211) CO2 TOTAL (test code = 27 mmol/L 23-31 8650863434) AGAP (test code = 2-16 7748338950) BUN (test code = 11 mg/dL 7-23 9989932289) GLUCOSE (test code = 57 mg/dL 70-110 L 8370031736) CREATININE (test code = 0.78 mg/dL 0.5-1.04 4373872637) CALCIUM (test code = 8.1 mg/dL 8.6-10.6 L 9391309090) eGFR Calculation mL/min/1.73m2 (Non-) (test code = 1896155204) eGFR Calculation mL/min/1.73m2 () (test code = 5523790140) CHIARA (test code = CHIARA) Association of Glomerular Filtration Rate (GFR) and Staging of Kidney Disease*+ + + +| GFR (mL/min/1.73 m2)?| With Kidney Damage?|?Without Kidney Damage+ --------+ --------+ +|?>90??|? Stage one?|? Normal?+ ---------+ ---------+ +|?60-89? |?Stage two?|? Decreased GFR? + --+ --+ ------+|?30-59?|?Stage three?|? Stage three? + --+ --+ ------+|?15-29?|?Stage four? |? Stage four?+ -------+ -------+ +|?<15 (or dialysis)?|?Stage five? |? Stage five?+ -------+ -------+ +*Each stage assumes the associated GFR level has been in effect for at least three months.?Stages 1 to 5, with or without kidney disease, indicate chronic kidney disease.Notes: Determination of stages one and two (with eGFR >59mL/min/1.73 m2) requires estimation of kidney damage for at least three months as defined by structural or functional abnormalities of the kidney, manifested by either:Pathological abnormalities or Markers of kidney damage (including abnormalities in the composition of the blood or urine or abnormalities in imaging tests). Lab Interpretation Abnormal (test code = 92130-5) [facility] WITH [id number] 23:52:00 Test Item Value Reference Range Interpretation Comments WBC (test code = See_Comment [Automated message] 6690-2) The system [employer] generated this result transmitted ref erence range: 4.30 - 1 1.10 10*3/?L. The re ference range was not u sed to interpret this result as normal/abnor mal. RBC (test code = See_Comment [Automated message] 789-8) The system [employer] generated this result transmitted ref erence range: 3.93 - 5 .25 10*6/?L. The re ference range was not u sed to interpret this result as normal/abnor mal. HGB (test code = 14.5 g/dL 11.6-15 718-7) HCT (test code = 43.5 % 35.7-45.2 4544-3) MCV (test code = 92.0 fL 80.6-95.5 787-2) MCH (test code = 30.7 pg 25.9-32.8 785-6) MCHC (test code = 33.3 g/dL 31.6-35.1 786-4) RDW-SD (test code 43.8 fL 39-49.9 = 85110-5) RDW-CV (test code 13.0 % 12-15.5 = 788-0) PLT (test code = See_Comment [Automated message] 777-3) The system whic h generated this result transmitted ref erence range: 166 - 35 8 10*3/?L. The re ference range was not u sed to interpret this result as normal/abnor mal. MPV (test code = 11.0 fL 9.5-12.9 19815-5) NRBC/100 WBC (test See_Comment [Automat ed message] code = 6158618382) The syste m which generated this result transmitted ref erence range: 0.0 - 10 .0 /100 WBCs. The refer ence range was not u sed to interpret this result as normal/abnor mal. NRBC x10^3 (test <0.01 See_Comment [Automated message] code = 8522655428) The syste m which generated this result transmitted ref erence range: 10*3/?L. The reference range was not used to interpr et this result as normal/abnormal . GRAN MAT (NEUT) % 67.5 % (test code = 770-8) IMM GRAN % (test 0.40 % code = 0052161188) LYMPH % (test code 23.6 % = 736-9) MONO % (test code 6.1 % = 5905-5) EOS % (test code = 1.8 % 713-8) BASO % (test code 0.6 % = 706-2) GRAN MAT 5.62 10*3/uL 1.88-7.09 x10^3(ANC) (test code = 0779248708) IMM GRAN x10^3 0.03 10*3/uL 0-0.06 (test code = 3751381641) LYMPH x10^3 (test 1.97 10*3/uL 1.32-3.29 code = 731-0) MONO x10^3 (test 0.51 10*3/uL 0.33-0.92 code = 742-7) EOS x10^3 (test 0.15 10*3/uL 0.03-0.39 code = 711-2) BASO x10^3 (test 0.05 10*3/uL 0.01-0.07 code = 704-7) [facility] [id number] 23:31:57 No acute cardiorespiratory process. Ezekiel Byrd MD., have reviewed this study and agree withthe abovereport.* * * * * * * * ORIGINAL REPORT * * * * * * * * EXAM: XR CHEST 1 VW HISTORY: dizziness COMPARISON: None FINDINGS: The lungs are clear without focal consolidation. No pleural effusion or pneumothorax is identified. The heart size is normal. No acute bony abnormality. [facility], Radiant Results Inft User - 05/22/2019 6:34 PM CDT* * * * * * * * ORIGINAL REPORT * * * * * * * *EXAM: XR CHEST1 VWHISTORY: dizziness COMPARISON: None FINDINGS:The lungs are clear without focal consolidation.No pleural effusion or pneumothorax is identified.The heart size is normal.No acute bony abnormality.IMPRESSIONNo acute cardiorespiratory process.Pancho Byrd MD., have reviewed this study and agree with the abovereport.[facility]
[2022-01-10] MEDS ORDERED: METOCLOPRAMIDE 10 MG/2mL INJ ONE (14:09)
[2022-01-10] MEDS ORDERED: MECLIZINE HCL 12.5 MG TAB ONE (14:09)
[2022-01-10] MEDS ORDERED: NA CHLORIDE 0.9% 1,000 ML ONE (14:09)
[2022-01-10 14:21] LABS: Absolute Lymphocytes (CBC) 1.6 K/uL (0.7-4.9); Hematocrit 39.9 % (36.0-45.0); Lymphocytes % 26.4 % (15.3-44.8); RBC Red Blood Cell Count 4.33 M/uL (3.86-4.86)
[2022-01-10 14:27] LABS: Protime INR 0.96
--- NOTE | 2022-01-10 14:36 | RAD REPORT ---
EXAM DESCRIPTION: RAD - Chest Single View - 01/10/2022 2:27 pm CLINICAL HISTORY: headache, dizziness COMPARISON: Two view chest 07/31/2021 TECHNIQUE: AP portable chest image was obtained 01/10/2022 2:27 pm . FINDINGS: Lungs are clear. Heart and vasculature are normal. No measurable pleural effusion and no p neumothorax. No acute bony abnormality seen. No acute aortic findings suspected. IMPRESSION: No acute cardiopulmonary process. No significant change from comparison study.
[2022-01-10 14:43] LABS: Albumin 3.8 g/dL (3.4-5.0); Bilirubin Direct 0.1 mg/dL (0-0.2); Bilirubin Total 0.3 mg/dL (0.2-1.0); Magnesium 2.4 mg/dL (1.8-2.4); Potassium 3.6 mmol/L (3.5-5.1); Protein, Total 6.6 g/dL (6.4-8.2); Troponin High Sensitivity 4.6 pg/mL (<58.9)
--- NOTE | 2022-01-10 15:33 | EDPHYS ---
Physician Documentation [facility] Name: Carie Martins Age: 41 yrs Sex: Female : 1980 Arrival Date: 01/10/2022 Time: 12:39 Bed 7 Private MD: ED Physician Ray Dugan HPI: 01/10 14:05 This 41 yrs old Female presents to ER via Ambulatory with complaints of cp Headache, Dizziness, Numbness Of Arm. 14:05 The patient complains of pain to the top of head and forehead. The patient describes cp the headache as a pressure. Onset: The symptoms/episode began/occurred 3 hour(s) ago. Associated signs and symptoms: Pertinent positives: dizziness. 14:05 Headache History: Other Patient reports history of migraine headache but reports she cp has not had one in long time and that today she started having pressure in head, dizziness, and tingling/numbness that started in right fingers and moved up right arm. Historical: - Allergies: 12:49 Hydrocodone-Acetaminophen; ab2 - PMHx: 12:49 Heart Murmur; ab2 - PSHx: 12:49 Cholecystectomy; hysterectomy; hernia repair; tubal; ab2 - Immunization history:: Adult Immunizations up to date. - Social history:: Smoking status: Patient denies any tobacco usage or history of. ROS: 14:08 Constitutional: Negative for body aches, chills, fever, poor PO intake. cp 14:08 Cardiovascular: Negative for chest pain, edema, palpitations. cp 14:08 Respiratory: Negative for cough, shortness of breath, wheezing. 14:08 Abdomen/GI: Negative for abdominal pain, vomiting, diarrhea, constipation. cp 14:08 Eyes: Negative for injury, pain, redness, and discharge. cp 14:08 ENT: Negative for drainage from ear(s), ear pain, sore throat, difficulty swallowing, difficulty handling secretions. 14:08 Neck: Negative for pain with movement, pain at rest, stiffness. 14:08 Neuro: Positive for dizziness, headache, numbness, tingling, of the right hand and right arm, Negative for weakness. 14:08 All other systems are negative. Exam: 14:10 ECG was reviewed by the Attending Physician. cp 14:15 Constitutional: The patient appears in no acute distress, alert, awake, cp non-diaphoretic, non-toxic, well developed, well nourished. 14:15 Head/Face: Normocephalic, atraumatic. cp 14:15 Eyes: Periorbital structures: appear normal, Conjunctiva: normal, no exudate, no injection, Sclera: no appreciated abnormality, Lids and lashes: appear normal, bilaterally. 14:15 ENT: External ear(s): are unremarkable, Nose: is normal, Mouth: Lips: moist, Oral mucosa: pink and intact, moist, Posterior pharynx: Airway: no evidence of obstruction, patent. 14:15 Neck: ROM/movement: is normal, is supple, without pain, no range of motions limitations, no nuchal rigidity. 14:15 Chest/axilla: Inspection: normal. 14:15 Cardiovascular: Rate: normal, Rhythm: regular, Heart sounds: murmur, not appreciated, Edema: is not appreciated, JVD: is not appreciated. 14:15 Respiratory: the patient does not display signs of respiratory distress, Respirations: normal, no use of accessory muscles, no retractions, labored breathing, is not present, Breath sounds: are clear throughout, no decreased breath sounds, no stridor, no wheezing. 14:15 Abdomen/GI: Inspection: abdomen appears normal, Palpation: abdomen is soft and non-tender, in all quadrants. 14:15 Neuro: Orientation: to person, place \T\ time. Mentation: is normal, Cerebellar function: Romberg testing is negative, Motor: moves all fours, strength is normal, Sensation: no obvious gross deficits. Vital Signs: 12:46 BP 151 / 91; Pulse 88; Resp 17; Temp 98.3(TE); Pulse Ox 100% on R/A; Weight 60.78 kg; ab2 Height 5 ft. 1 in. (154.94 cm); Pain 0/10; 14:27 BP 139 / 93; Pulse 81; Resp 15; Pulse Ox 100% ; jl7 15:10 BP 121 / 74; Pulse 76; Resp 15; Pulse Ox 99% ; jl7 16:25 BP 123 / 76; Pulse 74; Resp 18; Pulse Ox 100% ; Pain 2/10; jh6 12:46 Body Mass Index 25.32 (60.78 kg, 154.94 cm) ab2 NIH Stroke Scale Scores: 12:52 NIHSS Score: 0 ab2 MDM: 13:59 Patient medically screened. cp 14:30 Differential diagnosis: cerebral vascular accident, hyponatremia, intracerebral cp hemorrhage, migraine, subarachnoid bleed, subdural hematoma, temporal arteritis. 15:00 ED course: received phone report from Dr Hummel that head CT negative. cp 15:32 Data reviewed: vital signs, nurses notes, lab test result(s), EKG, radiologic studies. cp 15:32 Test interpretation: by ED physician or midlevel provider: ECG. Counseling: I had a cp detailed discussion with the patient and/or guardian regarding: the historical points, exam findings, and any diagnostic results supporting the discharge/admit diagnosis, lab results, radiology results, to return to the emergency department if symptoms worsen or persist or if there are any questions or concerns that arise at home. Response to treatment: the patient's symptoms have markedly improved after treatment, and as a result, I will discharge patient. ED course: VSS. Patient reports symptoms improved. Will discharge to home for continued monitoring. 01/10 14:01 Order name: Basic Metabolic Panel; Complete Time: 14:53 cp 01/10 14:53 Interpretation: Normal except: CL 109; GFR 65; CA 8.4. cp 01/10 14:01 Order name: CBC with Diff; Complete Time: 14:53 cp 01/10 14:01 Order name: LFT's; Complete Time: 14:53 cp 01/10 14:53 Interpretation: Normal except: AST 13. cp 01/10 14:01 Order name: Magnesium; Complete Time: 14:53 cp 01/10 14:01 Order name: PT-INR; Complete Time: 14:53 cp 01/10 14:01 Order name: Troponin HS; Complete Time: 14:53 cp 01/10 12:55 Order name: EKG; Complete Time: 12:56 cp 01/10 12:55 Order name: EKG - Nurse/Tech; Complete Time: 14:06 cp 01/10 14:01 Order name: XRAY Chest (1 view); Complete Time: 14:53 cp 01/10 14:08 Order name: CT Head Brain wo Cont cp 01/10 14:01 Order name: Cardiac monitoring; Complete Time: 14:06 cp 01/10 14:01 Order name: IV Saline Lock; Complete Time: 14:26 cp 01/10 14:01 Order name: Labs collected and sent; Complete Time: 14:26 cp 01/10 14:01 Order name: O2 Per Protocol; Complete Time: 14: cp 01/10 14: Order name: O2 Sat Monitoring; Complete Time: 14:27 cp EC:10 Rate is 65 beats/min. Rhythm is regular. MA interval is normal. QRS interval is normal. cp QT interval is normal. T waves are Inverted in lead III. Interpreted by me. Reviewed by me. Administered Medications: 14:10 Drug: Meclizine 25 mg Route: PO; jl7 14:30 Follow up: Response: No adverse reaction jl7 16:30 Follow up: Response: No adverse reaction 6 14:20 Drug: NS 0.9% 1000 ml Route: IV; Rate: 1 bolus; Site: right antecubital; jl7 14:20 Drug: Reglan (metoCLOPramide) 10 mg Route: IVP; Site: right antecubital; jl7 15:45 Drug: Ketorolac 15 mg Route: IVP; Site: right antecubital; jl7 Disposition: 01/11 08:58 Co-signature as Attending Physician, Ray Dugan MD. rn Disposition Summary: 01/10/22 15:32 Discharge Ordered Location: Home cp Problem: new cp Symptoms: have improved cp Condition: Stable cp Diagnosis - Headache cp - Dizziness and giddiness cp - Paresthesia of skin cp Followup: cp - With: Private Physician - When: 2 - 3 days - Reason: Recheck today's complaints Discharge Instructions: - Discharge Summary Sheet cp - Dizziness cp - General Headache Without Cause cp - Paresthesia cp Forms: - Medication Reconciliation Form cp - Thank You Letter cp - Antibiotic Education cp - Prescription Opioid Use cp Prescriptions: - Meclizine 25 mg Oral Tablet - take 1 tablet by ORAL route every 8 hours As needed; 30 tablet; Refills: 0, cp Product Selection Permitted - Ibuprofen 800 mg Oral Tablet - take 1 tablet by ORAL route every 8 hours As needed take with food; 30 tablet; cp Refills: 0, Product Selection Permitted - Zofran 4 mg Oral Tablet - take 1 tablet by ORAL route every 12 hours As needed; 20 tablet; Refills: 0, cp Product Selection Permitted NIH Stroke Scale - NIH Stroke Score Date: 01/10/2022 Time: 12:52 Total Score = 0 1a. Level of Consciousness (LOC) - 0(Alert) 1b. Level of Consciousness (LOC) (Month \T\ Age) - 0(Both) 1c. LOC Commands (Open \T\ Closes Eyes/Basic Acoustic Analyst) - 0(Both) 2. Best Gaze (Lateral Gaze Paresis) - 0(Normal) 3. Visual Field Loss - 0(No visual loss) 4. Facial Palsy - 0(Normal) 5a. Left Arm: Motor (10-second hold) - 0(No drift) 5b. Right Arm: Motor (10-second hold) - 0(No drift) 6a. Left Leg: Motor (5-second hold - always test supine) - 0(No drift) 6b. Right Leg: Motor (5-second hold - always test supine) - 0(No drift) 7. Limb Ataxia (finger/nose \T\ heel/singh - test with eyes open) - 0(Absent) 8. Sensory Loss (pinprick arms/legs/face) - 0(Normal) 9. Best Language: Aphasia (description/naming/reading) - 0(No aphasia) 10. Dysarthria (speech clarity - read or repeat words) - 0(Normal) 11. Extinction and Inattention (visual/tactile/auditory/spatial/personal) - 0(No abnormality) Initials: ab2 Signatures: Dispatcher [employer] EDRay Champion MD MD rn Page, Corey, PA PA cp Leal, Jahala RN RN jl7 Jin Faust Jennifer RN jh6
--- NOTE | 2022-01-10 15:33 | ER ---
Nurse's Notes [facility] Name: Carie Martins Age: 41 yrs Sex: Female : 1980 Arrival Date: 01/10/2022 Time: 12:39 Bed 7 Private MD: Diagnosis: Headache;Dizziness and giddiness;Paresthesia of skin Presentation: 01/10 12:46 Chief complaint: Patient states: "I have been feeling my right arm going numb, my lips ab2 were numb too. 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 Pt has equal strength in all extremities. Coronavirus screen: Vaccine status: Patient reports receiving the 2nd dose of the covid vaccine. Client denies travel out of the [place] in the last 14 days. At this time, the client does not indicate any symptoms associated with coronavirus-19. Ebola Screen: Patient negative for fever greater than or equal to 101.5 degrees Fahrenheit, and additional compatible Ebola Virus Disease symptoms Patient denies exposure to infectious person. Patient denies travel to an Ebola-affected area in the 21 days before illness onset. No symptoms or risks identified at this time. Initial Sepsis Screen: Does the patient meet any 2 criteria? No. Patient's initial sepsis screen is negative. Does the patient have a suspected source of infection? No. Patient's initial sepsis screen is negative. Risk Assessment: Do you want to hurt yourself or someone else? Patient reports no desire to harm self or others. Onset of symptoms is unknown. 12:46 Method Of Arrival: Ambulatory ab2 12:46 Acuity: CHRISTIANO 3 ab2 Triage Assessment: 12:50 Headache History: Denies prior headaches. General: Appears in no apparent distress. ab2 uncomfortable, Behavior is calm, cooperative, appropriate for age. Pain: Denies pain. Neuro: Level of Consciousness is awake, alert, obeys commands, Oriented to person, place, time, situation, Appropriate for age Rn L And D are equal bilaterally Moves all extremities. Gait is steady, Speech is normal, Facial symmetry appears normal, Intact Reports dizziness, headache numbness. Cardiovascular: No deficits noted. Denies chest pain, shortness of breath, Heart tones S1 S2 present Patient's skin is warm and dry. Respiratory: No deficits noted. Airway is patent Respiratory effort is even, unlabored, Respiratory pattern is regular, symmetrical, Breath sounds are clear bilaterally. GI: No deficits noted. No signs and/or symptoms were reported involving the gastrointestinal system. Abdomen is round non-distended, Patient currently denies abdominal pain. : No deficits noted. No signs and/or symptoms were reported regarding the genitourinary system. Derm: No deficits noted. No signs and/or symptoms reported regarding the dermatologic system. Skin is intact, is healthy with good turgor, Skin is pink, warm \\T\\ dry. Musculoskeletal: Reports numbness in right arm. 16:28 Pain: Also complains of. jh6 Historical: - Allergies: 12:49 Hydrocodone-Acetaminophen; ab2 - PMHx: 12:49 Heart Murmur; ab2 - PSHx: 12:49 Cholecystectomy; hysterectomy; hernia repair; tubal; ab2 - Immunization history:: Adult Immunizations up to date. - Social history:: Smoking status: Patient denies any tobacco usage or history of. Screenin:27 Abuse screen: Denies threats or abuse. Denies injuries from another. Nutritional jl7 screening: No deficits noted. Tuberculosis screening: No symptoms or risk factors identified. Fall Risk IV access (20 points). Total Harvey Fall Scale indicates No Risk (0-24 pts). Assessment: 14:00 General: Appears in no apparent distress. uncomfortable, Behavior is calm, cooperative, jl7 appropriate for age. Pain: Denies pain. Neuro: Level of Consciousness is awake, alert, obeys commands, Oriented to person, place, time, situation, Reports headache. Cardiovascular: Patient's skin is warm and dry. Respiratory: Airway is patent Respiratory effort is even, unlabored, Respiratory pattern is regular, symmetrical. Derm: Skin is pink, warm \\T\\ dry. 15:11 Reassessment: Patient appears in no apparent distress at this time. No changes from jl7 previously documented assessment. Patient and/or family updated on plan of care and expected duration. Pain level reassessed. Patient is alert, oriented x 3, equal unlabored respirations, skin warm/dry/pink. 15:46 Reassessment: Pt will be discharged after fluids are done infusing, approximately 400 jl7 mL left to infuse. 16:29 Reassessment: Patient and/or family updated on plan of care and expected duration. Pain jh6 level reassessed. Patient is alert, oriented x 3, equal unlabored respirations, skin warm/dry/pink. Patient states feeling better. Patient states symptoms have improved. Vital Signs: 12:46 BP 151 / 91; Pulse 88; Resp 17; Temp 98.3(TE); Pulse Ox 100% on R/A; Weight 60.78 kg; ab2 Height 5 ft. 1 in. (154.94 cm); Pain 0/10; 14:27 BP 139 / 93; Pulse 81; Resp 15; Pulse Ox 100% ; jl7 15:10 BP 121 / 74; Pulse 76; Resp 15; Pulse Ox 99% ; jl7 16:25 BP 123 / 76; Pulse 74; Resp 18; Pulse Ox 100% ; Pain 2/10; jh6 12:46 Body Mass Index 25.32 (60.78 kg, 154.94 cm) ab2 NIH Stroke Scale Scores: 12:52 NIHSS Score: 0 ab2 ED Course: 12:39 Patient arrived in ED. as 12:49 Triage completed. ab2 12:49 Arm band placed on right wrist. ab2 12:55 Otto Lawrence PA is PHCP. cp 12:55 Ray Dugan MD is Attending Physician. cp 13:45 Patient has correct armband on for positive identification. Placed in gown. Bed in low jl7 position. Call light in reach. Side rails up X 1. medical technologist microbiology on. Pulse ox on. NIBP on. 13:52 Tania Burgess RN is Primary Nurse. jl7 14:05 EKG done, by ED staff, reviewed by Otto MARTIN. [facility] 14:16 Initial lab(s) drawn, by fl, sent to lab. Inserted saline lock: 20 gauge in right jl7 antecubital area, using aseptic technique. Blood collected. 14:22 CT Head Brain wo Cont In Process Unspecified. EDMS 14:28 XRAY Chest (1 view) In Process Unspecified. EDMS 16:26 No provider procedures requiring assistance completed. IV discontinued, intact, jh6 bleeding controlled, No redness/swelling at site. Pressure dressing applied. Administered Medications: 14:10 Drug: Meclizine 25 mg Route: PO; jl7 14:30 Follow up: Response: No adverse reaction jl7 16:30 Follow up: Response: No adverse reaction jh6 14:20 Drug: NS 0.9% 1000 ml Route: IV; Rate: 1 bolus; Site: right antecubital; 7 14:20 Drug: Reglan (metoCLOPramide) 10 mg Route: IVP; Site: right antecubital; 7 15:45 Drug: Ketorolac 15 mg Route: IVP; Site: right antecubital; 7 Outcome: 15:32 Discharge ordered by . aileen 16:29 Discharged to home ambulatory. [facility] 16:29 Condition: good 16:29 Discharge instructions given to patient, Instructed on discharge instructions, follow up and referral plans. Demonstrated understanding of instructions, follow-up care, medications, Prescriptions given X 3. 16:30 Patient left the ED. [facility] NIH Stroke Scale - NIH Stroke Score Date: 01/10/2022 Time: 12:52 Total Score = 0 1a. Level of Consciousness (LOC) - 0(Alert) 1b. Level of Consciousness (LOC) (Month \\T\\ Age) - 0(Both) 1c. LOC Commands (Open \\T\\ Closes Eyes/Gerentological Physiotherapist) - 0(Both) 2. Best Gaze (Lateral Gaze Paresis) - 0(Normal) 3. Visual Field Loss - 0(No visual loss) 4. Facial Palsy - 0(Normal) 5a. Left Arm: Motor (10-second hold) - 0(No drift) 5b. Right Arm: Motor (10-second hold) - 0(No drift) 6a. Left Leg: Motor (5-second hold - always test supine) - 0(No drift) 6b. Right Leg: Motor (5-second hold - always test supine) - 0(No drift) 7. Limb Ataxia (finger/nose \\T\\ heel/singh - test with eyes open) - 0(Absent) 8. Sensory Loss (pinprick arms/legs/face) - 0(Normal) 9. Best Language: Aphasia (description/naming/reading) - 0(No aphasia) 10. Dysarthria (speech clarity - read or repeat words) - 0(Normal) 11. Extinction and Inattention (visual/tactile/auditory/spatial/personal) - 0(No abnormality) Initials: ab2 Signatures: Dispatcher [employer] EDMS Henrietta Martins Corey, PA PA Tania Chirinos RN RN jl7 Helena Linares dh3 Mavis Vann, RN RN jh6 Jin Faust ab2
[2022-01-10] MEDS ORDERED: KETOROLAC 30 MG/ML INJ ONE (15:43)
--- NOTE | 2022-01-10 17:10 | RAD REPORT ---
EXAM DESCRIPTION: CT - Head Brain Wo Cont - 01/10/2022 3:35 pm CLINICAL HISTORY: Dizziness;Headache, right arm numbness COMPARISON: No comparisons TECHNIQUE: Axial 5 mm thick images of the head were obtained without IV contrast. All CT scans are performed using dose optimization technique as appropriate and may include automated exposure control or mA/KV adjustment according to patient size. FINDINGS: No intracranial hemorrhage, mass, edema or shift of mid-line structures. No acute infarcti on changes seen. No abnormal extra-axial fluid collections. Ventricles are normal. Mastoid air cells and visualized portions of the paranasal sinuses are clear. No acute bony findings. Final report was delayed due to technical issues with the [employer] IT systems. Images were only available for viewing on the CT suite monitors when the preliminary report was telephoned to the referring cli nician. IMPRESSION: Negative non-contrast CT head examination.
[2022-01-10 17:20] VITALS: BP 123/76; O2SAT 100
[2022-01-10 17:27] VITALS: TEMP 97.9
--- NOTE | 2022-01-13 11:20 | EKG ---
Test Date: 2022-01-10 Test Time: 14:02:46 Property Analyst: WAN MEASUREMENT RESULTS: Intervals: Rate: 65 AL: 138 QRSD: 84 QT: 426 QTc: 443 [place]: P: 46 AL: 138 QRS: 39 T: 28 INTERPRETIVE STATEMENTS: Normal sinus rhythm with sinus arrhythmia Cannot rule out Anterior infarct, age undetermined Abnormal ECG Compared to ECG 11/04/2020 20:08:59 Myocardial infarct finding now present Electronically Signed On 01-13-22 11:13:30 CDT by Kevin Oneal
== END 2022-01-10 16:30 | disposition home or self-care (01) ==
LOC: ER 12:38
DX: R51.9 Headache, unspecified (principal); R42 Dizziness and giddiness; R20.2 Paresthesia of skin; Z88.5 Allergy status to narcotic agent
CPT/HCPCS: 93005; 85025; 80048; 36415; 83735; 85610; 80076; 84484; 70450; 71045; 96375; 96374; 99285; J2765; J8597; J7030